=== PATIENT | male | born 1995 | race Two or more races ===

== ENCOUNTER 2020-01-24 15:18 | Inpatient (IN) | payer MEDICAID ==
[~2020-01-24] VITALS: Ht 182.9 cm; Wt 58.1 kg
[2020-01-24] VITALS (10 sets, daily range): BP systolic 105–140; BP diastolic 60–79; BMI 17.2
[2020-01-24 15:42] LABS: BASOPHILS 0.2 % (0-2); EOSINOPHILS 0.1 % (0-7); HEMATOCRIT 52.4 % (42.0-54.0); HEMOGLOBIN 17.5 g/dL (13.5-17.5); IMMATURE GRANULOCYTES 0.4 % (0-5); LYMPHOCYTES 5.9 % (15-50); MCH 34.1 pg (26.0-34.0); MCHC 33.4 g/dL (31.0-37.0); MCV 102.1 fL (80.0-100.0); MEAN PLATELET VOLUME 10.8 fL (7.4-10.4); MONOCYTES 3.2 % (2-11); NEUTROPHILS 90.2 % (40-80); PLATELET COUNT 304 10x3/uL (130-400); RBC 5.13 10x6/uL (4.20-6.10); RDW 12.9 % (11.5-14.5); WBC 18.1 10x3/uL (4.8-10.8)
[2020-01-24 16:01] LABS: ALBUMIN 4.9 g/dL (3.4-5.0); BILIRUBIN - TOTAL 0.59 mg/dL (0.2-1.3); C-REACTIVE PROTEIN 3.2 mg/dL (0.0-0.9); CALCIUM 9.5 mg/dL (8.5-10.1); CREATININE - SERUM 1.5 mg/dL (0.6-1.3); MAGNESIUM - SERUM 2.2 mg/dL (1.8-2.4); PROTEIN - SERUM 9.6 g/dL (6.4-8.2)
[2020-01-24 16:15] LABS: ANION GAP 36.5 mmol/L (8-16); POTASSIUM - SERUM 6.1 mmol/L (3.5-5.1)
[2020-01-24 16:16] LABS: CARBON DIOXIDE 7.6 mmol/L (21.0-32.0)
--- NOTE | 2020-01-24 17:00 | NUR ---
NS INFUSION COMPLETE @ 1700 ON 01/24/20
[2020-01-24 17:38] LABS: UDS - AMPHET NEGATIVE QUAL (NEGATIVE); UDS - BARB NEGATIVE QUAL (NEGATIVE); UDS - BENZO NEGATIVE QUAL (NEGATIVE); UDS - COCAINE NEGATIVE QUAL (NEGATIVE); UDS - OPIATE NEGATIVE QUAL (NEGATIVE); UDS - PCP NEGATIVE QUAL (NEGATIVE); UDS - THC NEGATIVE QUAL (NEGATIVE)
[2020-01-24 17:39] LABS: BILIRUBIN NEGATIVE (NEGATIVE); GLUCOSE 1000 mg/dL (NEGATIVE); KETONE LARGE mg/dL (NEGATIVE); NITRITE NEGATIVE (NEGATIVE); SPECIFIC GRAVITY 1.025 (1.005-1.020); UROBILINOGEN NORMAL (NORMAL)
--- NOTE | 2020-01-24 17:48 | NUR ---
RESTING IN BED WITH EYES CLOSED. AROUSES EASILY WHEN NAME CALLED. MOANS OUT IN PAIN WITH ANY INTERVENTION THEN RTNS TO REST IMMED
--- NOTE | 2020-01-24 18:10 | NUR ---
REPORT GIVEN TO JARED RODRIGUEZ BY JARED DOMÍNGUEZ
--- NOTE | 2020-01-24 18:20 | NUR ---
NS INFUSING @ 100 ML/HR, SODIUM BICARB GTT INFUSING @ 100 ML/HR AND INSULIN GTT INFUSING AT 11 UNITS/HR (11 ML/HR) UPON TRANSPORT TO ICU
--- NOTE | 2020-01-24 18:20 | NUR ---
TRANSPORTED TO ICU VIA [facility] CONDITION STABLE
--- NOTE | 2020-01-24 18:30 | NUR ---
PT ARRIVED FROM ER IN [facility] IN STABLE CONDITION. A&OX4 BUT SLEEPY AND WEAK. VSS. BS AT THIS TIME IS 286. INSULIN DRIP CHANGES TO 9 UNITS AT THIS TIME PER INSULIN FLOW PROTOCOL. WILL PERFOMR FULL ASSESSMENT AND HX AND DOCUMENT. BED IS LOW,SIDE RIASLX2,CALL LIGHT WITHIN REACH.
[2020-01-24 19:37] LABS: CALCIUM 8.5 mg/dL (8.5-10.1); CARBON DIOXIDE 10.5 mmol/L (21.0-32.0); CHLORIDE - SERUM 104 mmol/L (98-107); CREATININE - SERUM 1.2 mg/dL (0.6-1.3); SODIUM 140 mmol/L (136-145); UREA NITROGEN 18 mg/dL (7-18); eGFR NON AFRICAN AMERICAN 80 mL/min (90-120)
[2020-01-24 19:38] LABS: CALC OSMOLALITY 291 mosm/kg (275-300); GLUCOSE 293 mg/dL (74-106)
--- NOTE | 2020-01-24 20:30 | NUR ---
PT IS RESTING IN BED WITH EYES CLOSED. VSS. BS IS 258 AT THIS TIME. WHEN ASKED IF HE NEEDS ANYTHIGN OR IS HAVING ANY PAIN, HE VOICES "NO". BED IS LOW,SIDE RAILSX2,CALL LIGHT WITHIN REACH. WILL CONITNUE TO [facility]
--- NOTE | 2020-01-24 21:00 | NUR ---
ABDELRAHMAN ELLSWORTH CALLED AT THIS TIME. T.O TO START D5 1/2 NS AT 125ML/HR WHEN BS IS BELOW 200. T.O READ BACK CORRECT.
--- NOTE | 2020-01-24 21:30 | NUR ---
PT IS RESTING IN BED WITH EYES CLOSED. VSS. BS IS 211 AT THIS TIME. NO NEEDS OR COMPLAINTS VOICED. BED IS LOW,SIDE RAISLX2,CALL LIGHT WITHIN REACH. WILL CONITNUE TO MONITOR
--- NOTE | 2020-01-24 23:30 | NUR ---
PT IS RESTING IN BED WITH EYES CLOSED. VSS. BS IS 96. PT VOICES NO NEEDS OR CONCERNS. BED IS LOW,SIDE RIALSX2,CALL LIGHT WITHIN REACH. SENG GARCIA IS HERE AT THIS TIME. GAVE VERABL ORDER TO GET BMP STAT SO HE CAN ASSESS LAB LEVELS. STAND BY FOR CHANGE IN FLUID ORDER. WILL CONITNUE TO MONITOR
[2020-01-25] VITALS (24 sets, daily range): BP systolic 105–132; BP diastolic 7–93; BMI 17.1
[2020-01-25 00:10] LABS: CALC OSMOLALITY 280 mosm/kg (275-300); CALCIUM 7.9 mg/dL (8.5-10.1); CARBON DIOXIDE 19.5 mmol/L (21.0-32.0); CHLORIDE - SERUM 108 mmol/L (98-107); CREATININE - SERUM 1.1 mg/dL (0.6-1.3); GLUCOSE 113 mg/dL (74-106); POTASSIUM - SERUM 4.1 mmol/L (3.5-5.1); SODIUM 140 mmol/L (136-145); UREA NITROGEN 16 mg/dL (7-18); eGFR NON AFRICAN AMERICAN 88 mL/min (90-120)
--- NOTE | 2020-01-25 00:14 | NUR ---
TALKED WITH SOPHIA QUICK AND NO CHANGE IN FLUID ORDERS AT THIS TIME AND TO FOLLOW GLYCEMIC PROTOCOL
--- NOTE | 2020-01-25 01:30 | NUR ---
PT IS RESTING WITH EYES CLOSED. VSS. BS IS 99 AT THIS TIME. ADJUSTED INSULIN TO 1.9 UNITS PER PROTOCOL. PT VOICES NO NEED OR CONCERNS. BED IS LOW,SIDE RAILSX2,CALL LIGHT WITHIN REACH. WILL CONITNUE TO MONITOR
--- NOTE | 2020-01-25 02:35 | NUR ---
PT IS RESTING IN BED WITH EYES CLOSED. VSS. BS IS 148 AT THIS TIME. CHANGING INSULIN TO 4.4 UNITS PER PROTOCOL. PT VOICES NO NEEDS OR COMPLAINTS. BED IS LOW,SIDE RIALSX2,CALL LIGHT WIHTIN REACH. WILL CONITNUE TO MONITOR
--- NOTE | 2020-01-25 03:30 | NUR ---
pt is resting with eyes closed. vss. BS IS 96. INSULIN DRIP IS AT 1.4 UNITS AT THIS TIME PER PROTOCOL. FILL PERFORM RE-ASSESSMENT AT THIS TIME AND DOC IN FLOWSHEET. PT VOICES NO NEEDS OR CONCERNS. I DID PROVIDE HIM WITH ICE CHIPS SINCE HIS BS IS BELOW 200 AND HE IS NO LONGER NAUSEA. TOLERATING WELL. HE IS LAYING ON RIGHT SIDE AND CAN MOVE SELF. BED IS LOW,SIDE RIALSX2,CALL LIGHT WITHIN REACH. WILL CONITNUE TO MONITOR
--- NOTE | 2020-01-25 04:30 | NUR ---
PT IS RESTING IN BED WITH EYES CLOSED. VSS. BS IS 97. NO NEEDS OR CONCERNS VOICED. BED IS LOW,SIDE RAILSX2,CALL LIGHT WITHIN REACH.
[2020-01-25 05:00] LABS: BASOPHILS 0.3 % (0-2); EOSINOPHILS 0.4 % (0-7); HEMATOCRIT 44.7 % (42.0-54.0); HEMOGLOBIN 15.1 g/dL (13.5-17.5); IMMATURE GRANULOCYTES 0.3 % (0-5); LYMPHOCYTES 19.3 % (15-50); MCH 33.6 pg (26.0-34.0); MCHC 33.8 g/dL (31.0-37.0); MEAN PLATELET VOLUME 10.2 fL (7.4-10.4); MONOCYTES 9.1 % (2-11); NEUTROPHILS 70.6 % (40-80); PLATELET COUNT 284 10x3/uL (130-400); RDW 13.1 % (11.5-14.5); WBC 15.6 10x3/uL (4.8-10.8)
[2020-01-25 05:03] LABS: MCV 99.3 fL (80.0-100.0)
--- NOTE | 2020-01-25 05:30 | NUR ---
PT IS RESTING WITH EYES CLOSED. VSS. BS IS 84 AT THIS TIME. PT VOICES NO NEEDS OR C/O PAIN. WHEN ASKED IF HE WOULD LIKE TO HAVE A BATH HE VOICED"NO NOT RIGHT NOW, MAYBE LATER, I JUST WANT TO SLEEP". CALL [facility]IO. WILL CONTINUE TO MONITOR
[2020-01-25 05:36] LABS: ALBUMIN 3.4 g/dL (3.4-5.0); ALKALINE PHOSPHATASE 108 U/L (30-120); ALT (SGPT) 24 U/L (10-68); BILIRUBIN - TOTAL 0.28 mg/dL (0.2-1.3); CALC OSMOLALITY 275 mosm/kg (275-300); CALCIUM 7.9 mg/dL (8.5-10.1); CARBON DIOXIDE 19.7 mmol/L (21.0-32.0); CHLORIDE - SERUM 108 mmol/L (98-107); CREATININE - SERUM 1.1 mg/dL (0.6-1.3); GLUCOSE 78 mg/dL (74-106); PHOSPHOROUS 3.7 mg/dL (2.5-4.9); POTASSIUM - SERUM 4.1 mmol/L (3.5-5.1); PROTEIN - SERUM 7.1 g/dL (6.4-8.2); SODIUM 138 mmol/L (136-145); THYROID STIMULATING HORMONE 1.49 uIU/mL (0.36-3.74); UREA NITROGEN 16 mg/dL (7-18); eGFR NON AFRICAN AMERICAN 88 mL/min (90-120)
--- NOTE | 2020-01-25 06:40 | NUR ---
PT IS RESTING IN BED WITH EYES CLOSED. VSS. BED IS LOW,SIDE RAILSX2,CALL LIGHT WITHIN REACH. WILL CONINTUE TO MONITOR
--- NOTE | 2020-01-25 07:00 | NUR ---
BEDSIDE REPORT RECEIVED. SHIFT ASSESSMENT COMPLETED PER FLOWSHEET, SEE FLOWSHEET FOR INFORMATION. PT APPEARS TO BE LETHARGIC BUT A&OX4, EASILY AROUSED. CHECKED FSBS, TITRATED INSULIN DRIP PER ORDERS. VSS. PT DENIES ANY ACUTE NEEDS OR DISTRESS NOTED AT THIS TIME. WILL CONT TO MONITOR.
[2020-01-25 07:11] LABS: CALC OSMOLALITY 273 mosm/kg (275-300); CALCIUM 7.9 mg/dL (8.5-10.1); CHLORIDE - SERUM 106 mmol/L (98-107); CREATININE - SERUM 0.9 mg/dL (0.6-1.3); GLUCOSE 81 mg/dL (74-106); POTASSIUM - SERUM 4.2 mmol/L (3.5-5.1); SODIUM 137 mmol/L (136-145); UREA NITROGEN 14 mg/dL (7-18); eGFR NON AFRICAN AMERICAN > 90 mL/min (90-120)
--- NOTE | 2020-01-25 09:00 | NUR ---
PT RESTING IN BED WITH EYES CLOSED. NO ACUTE NEEDS OR DISTRESS NOTED AT THIS TIME. VSS. WILL CONT TO MONITOR.
--- NOTE | 2020-01-25 11:00 | NUR ---
REASSESSMENT COMPLETED PER FLOWSHEET, SEE FLOWSHEET FOR INFORMATION. VSS. ASSISSTED PT TO BSC. NO ACUTE NEEDS OR DISTRESS NOTED AT THIS TIME. WILL CONT TO MONITOR.
--- NOTE | 2020-01-25 13:00 | NUR ---
PT STATING "I THOUGHT YOU WERE SUPPOSED TO BE GETTING ME A FOOD TRAY?" INFORMED PT THAT WE HAVE TO WAIT FOR FSBS READING TO SEE IF INSULIN IS WORKING. WILL CONT TO MONITOR.
[2020-01-25 14:19] LABS: CALC OSMOLALITY 273 mosm/kg (275-300); CARBON DIOXIDE 16.2 mmol/L (21.0-32.0); CHLORIDE - SERUM 101 mmol/L (98-107); CREATININE - SERUM 1.1 mg/dL (0.6-1.3); GLUCOSE 217 mg/dL (74-106); POTASSIUM - SERUM 5.5 mmol/L (3.5-5.1); SODIUM 133 mmol/L (136-145); UREA NITROGEN 15 mg/dL (7-18); eGFR NON AFRICAN AMERICAN 88 mL/min (90-120)
--- NOTE | 2020-01-25 14:32 | NUR ---
UPDATE GIVEN, NO NEW ORDERS RECEIVED. WILL CONT TO MONITOR.
--- NOTE | 2020-01-25 15:00 | NUR ---
REASSESSMENT COMPLETE PER FLOWSHEET, SEE FLOWSHEET FOR INFORMATION. TRAY GIVEN. WILL CONT TO MONITOR. NO ACUTE NEEDS OR DISTRESS NOTED.
--- NOTE | 2020-01-25 17:00 | NUR ---
NOTED A 9MM BY 4MM INFLAMMED HARDENED BUMP ON PT L SHOULDER. NOTIFIED , NO NEW ORDERS. WAITING FOR RESPONSE. WILL CONT TO MONITOR.
[2020-01-25 18:27] LABS: UDS - AMPHET NEGATIVE QUAL (NEGATIVE); UDS - BARB NEGATIVE QUAL (NEGATIVE); UDS - BENZO NEGATIVE QUAL (NEGATIVE); UDS - COCAINE NEGATIVE QUAL (NEGATIVE); UDS - OPIATE NEGATIVE QUAL (NEGATIVE); UDS - PCP NEGATIVE QUAL (NEGATIVE); UDS - THC NEGATIVE QUAL (NEGATIVE)
--- NOTE | 2020-01-25 18:50 | NUR ---
NEW ORDERS RECEIVED PER . WILL CONT TO MONITOR.
--- NOTE | 2020-01-25 19:10 | NUR ---
RECIVED REPORT AT BEDSIDE. PT IS SITTING UP WATCHING TV A&OX4. VOICES NO PAIN AT THIS TIME WHEN ASKED. NO NEEDS VOICED. VSS. RECIVED IN REPORT THAT PT HAS A NEW LESION/BUMP ON THE BACK OF HIS LEFT UPPER ARM. IT IS HARD, WARM, AND READ. ULTRASOUND IS ORDERED AND VANCOMYCIN WAS ADDED TO ORDERS. LAB IS HERE AT THIS TIME CHECKING BS DUE TO OUR BLOOD GLUCOSE MACHINE NOT WORKING AT THIS TIME. WILL FOLLOW UP WITH THAT ONCE POSTED. WILL PERFOMR FULL ASSESSMNETN AND DOCUMENT IN FLOW SHEET. BED IS LOW,SIDE RAILSX2,CALL LIGHT WITHIN REACH. WILL CONTINUE TO MONITOR
[2020-01-25 19:23] LABS: CALCIUM 7.7 mg/dL (8.5-10.1); CHLORIDE - SERUM 100 mmol/L (98-107); CREATININE - SERUM 1.1 mg/dL (0.6-1.3); SODIUM 130 mmol/L (136-145); eGFR NON AFRICAN AMERICAN 88 mL/min (90-120)
[2020-01-25 19:24] LABS: CALC OSMOLALITY 275 mosm/kg (275-300); GLUCOSE 324 mg/dL (74-106); UREA NITROGEN 19 mg/dL (7-18)
--- NOTE | 2020-01-25 21:12 | NUR ---
PT USED CALL LIGHT AND ASKED "CAN I HAVE A SNACK?". I PROVIDED HIM WITH SUGAR FREE JELLO AND A DIET TONNY MIST. PT VOICED "THANK YOU". VSS. BED IS LOW,SIDE RAISLX2,CALL LIGHT OSMARIN REACH. WILL CONTINUE TO MONITOR
--- NOTE | 2020-01-25 21:46 | NUR ---
JUST CALLED TAXI DANCER FOR THE SECOND TIME TO COME OVERRIDE VANCOMYCIN THAT IS NEW ORDER. SHE VOICED"ILL BE THERE SHORTLY".
--- NOTE | 2020-01-25 23:26 | NUR ---
PT IS RESTING IN BED WITH EYES CLOSED. VSS. BED IS LOW,SIDE RAISLX2,CALL LIGHT WITHIN REACH. WILL CONTINUE TO MONITOR
[2020-01-26] VITALS (16 sets, daily range): BP systolic 103–124; BP diastolic 56–85
--- NOTE | 2020-01-26 00:44 | NUR ---
PT IS RESTING IN BED WITH EYES CLSOED. VSS. BED IS LOW,SIDE RAILSX2,CALL LIGHT WITHIN REACH. WILL CONTINUE TO MONITOR
--- NOTE | 2020-01-26 02:42 | NUR ---
PT IS RESTING IN BED WITH EYES CLOSED. VSS. WILL PERFORM RE-ASSESSMENT AND DOCUMENT IN FLOWSHEET. PT VOICED NO NEEDS OR C/O OF PAIN. BED IS LOW,SIDE RIALSX2,CALL LIGHT WITHIN REACH. WILL CONINTUE TO MONITOR
[2020-01-26 03:52] LABS: BASOPHILS 0.3 % (0-2); EOSINOPHILS 1.2 % (0-7); HEMATOCRIT 39.6 % (42.0-54.0); HEMOGLOBIN 13.2 g/dL (13.5-17.5); IMMATURE GRANULOCYTES 0.3 % (0-5); LYMPHOCYTES 17.8 % (15-50); MCH 32.9 pg (26.0-34.0); MCHC 33.3 g/dL (31.0-37.0); MCV 98.8 fL (80.0-100.0); MEAN PLATELET VOLUME 10.3 fL (7.4-10.4); MONOCYTES 8.5 % (2-11); NEUTROPHILS 71.9 % (40-80); PLATELET COUNT 234 10x3/uL (130-400); RBC 4.01 10x6/uL (4.20-6.10); RDW 12.9 % (11.5-14.5)
[2020-01-26 03:56] LABS: WBC 11.5 10x3/uL (4.8-10.8)
[2020-01-26 04:01] LABS: ALBUMIN 2.9 g/dL (3.4-5.0); ALKALINE PHOSPHATASE 99 U/L (30-120); ALT (SGPT) 23 U/L (10-68); BILIRUBIN - TOTAL 0.36 mg/dL (0.2-1.3); CALC OSMOLALITY 275 mosm/kg (275-300); CARBON DIOXIDE 23.6 mmol/L (21.0-32.0); CHLORIDE - SERUM 102 mmol/L (98-107); GLUCOSE 281 mg/dL (74-106); MAGNESIUM - SERUM 1.6 mg/dL (1.8-2.4); PHOSPHOROUS 2.9 mg/dL (2.5-4.9); POTASSIUM - SERUM 3.7 mmol/L (3.5-5.1); PROTEIN - SERUM 6.2 g/dL (6.4-8.2); SODIUM 133 mmol/L (136-145); eGFR NON AFRICAN AMERICAN > 90 mL/min (90-120)
[2020-01-26 04:03] LABS: UREA NITROGEN 13 mg/dL (7-18)
--- NOTE | 2020-01-26 04:30 | NUR ---
PT IS RESTING IN BED ON RIGHT SIDE C EYES CLOSED. VSS. BED IS LOW, SIDE RAILSX2,CALL LIGHT WITHIN REACH. WILLC ONITNUE TO MONITOR
--- NOTE | 2020-01-26 06:31 | NUR ---
PT IS RESTING IN BED WATCHING TV. VOICES NO NEEDS OR C/O OF PAIN. VSS. BED IS LOW,SIDE RIALSX2,CALL LIGHT WTIHIN REACH. WILLC ONITNUE TO MONITOR
--- NOTE | 2020-01-26 07:00 | NUR ---
BEDSIDE REPORT RECEIVED. SHIFT ASSESSMENT COMPLETE PER FLOWSHEET, SEE FLOWSHEET FOR INFORMATION. PT REQUESTED "MORE SNACKS", INFORMED PT THAT WE NEED TO CUT BACK ON HIS "SNACKS" TO HELP DECREASE HIS BS. NO ACUTE NEEDS OR DISTRESS NOTED AT THIS TIME. VSS. WILL CONT TO MONITOR.
--- NOTE | 2020-01-26 09:00 | NUR ---
PT REQUESTED TO HAVE PEANUT BUTTER, CESAR CRACKERS AND MILK FOR HIS PROTEIN. INFORMED PT THAT ALL OF THOSE ARE VERY HIGH IN SUGAR AND I WOULD GLADLY CALL DIETARY TO MAKE A MORE DIABETIC FRIEDNLY DECISION. PT DENIES AND SAYS HE DOESN'T NEED IT. NO ACUTE NEEDS OR DISTRESS NOTED AT THIS TIME. VSS. WILL CONT TO MONITOR.
--- NOTE | 2020-01-26 11:00 | NUR ---
REASSESSMENT COMPLETED PER FLOWSHEET, SEE FLOWSHEET FOR INFORMATION. NO ACUTE NEEDS OR DISTRESS NOTED AT THIS TIME. DIATERY CONSULT AT BEDSIDE. WILL CONT TO MONITOR.
--- NOTE | 2020-01-26 12:33 | NUR ---
Nutrition consult for DMT1: Instructed pt on diabetic diet. Pt reports he usually keeps glucose under better control; however, pt reports being under a lot of stress recently and he is not sure what happened. Pt states he has had nutrition education before and tries to watch what he eats. RDN reviewed CHO containing foods and the affect CHO have on glucose. Stressed the importance of eating meals at consistent CHO every day. Discussed CHO foods pt should eliminate ie: regular soda, juice, all sugary foods. Will continue to educate pt while he is in the hospital. Provided pt with printed diet information and RDN name and phone number. RDN following.
--- NOTE | 2020-01-26 13:00 | NUR ---
PT RESTING IN BED WITH EYES CLOSED. WILL CONT TO MONITOR.
--- NOTE | 2020-01-26 13:51 | NUR ---
PAGED FOR CONSULT. WILL CONT TO MONITOR.
--- NOTE | 2020-01-26 14:30 | NUR ---
REPORT CALLED TO MED 2. TRANSFER PT TO ROOM [id number]. NO ACUTE NEEDS OR DISTRESS NOTED. WILL CONT TO MONITOR.
--- NOTE | 2020-01-26 15:20 | NUR ---
PT RECIEVED FROM ICU VIA WHEELCHAIR. IV NOTED TO L AND R AC, BOTH SL. CURRENTLY IN SHOWER PER REQUEST. DENIES FURTHER NEEDS OR PAIN AT THIS TIME. CALL LIGHT WITHIN REACH. ORIENTED TO ROOM. BED IN LOWEST POSITION. WILL CONTINUE TO MONITOR.
--- NOTE | 2020-01-26 19:30 | NUR ---
RECEIVED REPORT, WILL ASSUME CARE OF PT, WATCHING TV AND DRINKING COFFEE, DENIES ANY OTHER NEEDS AT THIS TIME, BED IS LOW, SRX2, CALL LIGHT IN REACH, WILL CONTINUE PLAN OF CARE
[2020-01-27] VITALS: BP 117/75
[2020-01-27 04:00] VITALS: BP 114/70
--- NOTE | 2020-01-27 05:54 | NUR ---
I have reviewed this patient and I concur with the Shift Assessment completed by the Licensed Practical Nurse today this shift.\
[2020-01-27 05:57] LABS: BASOPHILS 0.7 % (0-2); EOSINOPHILS 1.6 % (0-7); HEMATOCRIT 38.9 % (42.0-54.0); IMMATURE GRANULOCYTES 0.3 % (0-5); LYMPHOCYTES 25.1 % (15-50); MCH 32.9 pg (26.0-34.0); MCHC 33.4 g/dL (31.0-37.0); MCV 98.5 fL (80.0-100.0); MEAN PLATELET VOLUME 10.3 fL (7.4-10.4); MONOCYTES 12.2 % (2-11); NEUTROPHILS 60.1 % (40-80); PLATELET COUNT 193 10x3/uL (130-400); RBC 3.95 10x6/uL (4.20-6.10); RDW 12.7 % (11.5-14.5)
--- NOTE | 2020-01-27 06:02 | NUR ---
[id number] ORANGE JUICE AND GRAMCRACKERS
[2020-01-27 06:03] LABS: WBC 7.7 10x3/uL (4.8-10.8)
[2020-01-27 06:17] LABS: ALBUMIN 2.8 g/dL (3.4-5.0); ALKALINE PHOSPHATASE 88 U/L (30-120); ALT (SGPT) 21 U/L (10-68); BILIRUBIN - TOTAL 0.38 mg/dL (0.2-1.3); CALCIUM 8.4 mg/dL (8.5-10.1); CARBON DIOXIDE 28.2 mmol/L (21.0-32.0); CHLORIDE - SERUM 105 mmol/L (98-107); MAGNESIUM - SERUM 1.7 mg/dL (1.8-2.4); SODIUM 143 mmol/L (136-145); UREA NITROGEN 10 mg/dL (7-18)
[2020-01-27 06:20] LABS: PHOSPHOROUS 3.8 mg/dL (2.5-4.9)
[2020-01-27 06:21] LABS: CALC OSMOLALITY 281 mosm/kg (275-300); CREATININE - SERUM 0.6 mg/dL (0.6-1.3); GLUCOSE 54 mg/dL (74-106); eGFR NON AFRICAN AMERICAN > 90 mL/min (90-120)
[2020-01-27 06:22] LABS: POTASSIUM - SERUM 2.8 mmol/L (3.5-5.1)
--- NOTE | 2020-01-27 07:20 | NUR ---
RECIEVE REPORT. RESTING IN BED WITH EYES CLOSED. NO SIGNS OF DISTRESS. CONTINUE PLAN OF CARE AND SAFETY PRECAUTIONS.
[2020-01-27 10:14] VITALS: BP 119/79
--- NOTE | 2020-01-27 11:07 | NUR ---
ALERT AND ORIENTED X4. SITTING UP IN BED. CONSENTS SIGNED ON CHART FOR PROCEDURE. DENIES ANY NEEDS. CONTINUE PLAN OF CARE AND SAFETY PRECAUTIONS.
[2020-01-27 13:08] VITALS: Ht 182.9 cm; Wt 58.1 kg
--- NOTE | 2020-01-27 13:59 | NUR ---
RETURN TO ROOM VIA BED FROM PROCEDURE. BP-143/89, HR-75, R-16, O2-99% RA. LT ARM IN SLING. DRESSING CLEAN DRY INTACT. FREE FROM BLEEDING. DENIES ANY NEEDS AT THIS TIME. CONTINUE PLAN OF CARE AND SAFETY PECAUTIONS.
[2020-01-27 14:33] LABS: MAGNESIUM - SERUM 1.7 mg/dL (1.8-2.4)
[2020-01-27 14:44] LABS: POTASSIUM - SERUM 3.3 mmol/L (3.5-5.1)
[2020-01-27 17:19] VITALS: BP 117/72
--- NOTE | 2020-01-27 19:25 | NUR ---
RECEIVED REPORT, WILL ASSUME CARE OF PT, COMPLAINS OF ARM PAIN, WILL PROVIDE NORCO ORDER, BED IS LOW, SRX2, CALL LIGHT IN REACH, WILL CONTINUE PLAN OF CARE
[2020-01-27 20:00] VITALS: BP 123/84
[2020-01-28 01:12] VITALS: BP 106/79
--- NOTE | 2020-01-28 04:00 | NUR ---
I have reviewed this patient and I concur with the Shift Assessment completed by the Licensed Practical Nurse today this shift.
[2020-01-28 04:05] VITALS: BP 121/79
[2020-01-28 05:48] LABS: BASOPHILS 0.7 % (0-2); EOSINOPHILS 4.7 % (0-7); HEMATOCRIT 40.7 % (42.0-54.0); HEMOGLOBIN 13.4 g/dL (13.5-17.5); IMMATURE GRANULOCYTES 0.3 % (0-5); LYMPHOCYTES 36.8 % (15-50); MCH 32.8 pg (26.0-34.0); MCHC 32.9 g/dL (31.0-37.0); MCV 99.8 fL (80.0-100.0); MEAN PLATELET VOLUME 10.5 fL (7.4-10.4); MONOCYTES 9.3 % (2-11); NEUTROPHILS 48.2 % (40-80); PLATELET COUNT 188 10x3/uL (130-400); RBC 4.08 10x6/uL (4.20-6.10); RDW 12.9 % (11.5-14.5); WBC 5.9 10x3/uL (4.8-10.8)
[2020-01-28 06:29] LABS: ALBUMIN 2.9 g/dL (3.4-5.0); ALKALINE PHOSPHATASE 126 U/L (30-120); BILIRUBIN - TOTAL 0.16 mg/dL (0.2-1.3); CALCIUM 8.2 mg/dL (8.5-10.1); CARBON DIOXIDE 28.8 mmol/L (21.0-32.0); CHLORIDE - SERUM 99 mmol/L (98-107); CREATININE - SERUM 0.6 mg/dL (0.6-1.3); MAGNESIUM - SERUM 1.9 mg/dL (1.8-2.4); PHOSPHOROUS 3.8 mg/dL (2.5-4.9); PROTEIN - SERUM 6.2 g/dL (6.4-8.2); SODIUM 134 mmol/L (136-145); UREA NITROGEN 12 mg/dL (7-18); eGFR NON AFRICAN AMERICAN > 90 mL/min (90-120)
[2020-01-28 06:35] LABS: ALT (SGPT) 27 U/L (10-68); CALC OSMOLALITY 278 mosm/kg (275-300); GLUCOSE 302 mg/dL (74-106); POTASSIUM - SERUM 4.3 mmol/L (3.5-5.1)
--- NOTE | 2020-01-28 07:20 | NUR ---
RECIEVE REPORT. RESTING IN BED. ALERT AND ORIENTED X4. LT ARM IN SLING. DENIES ANY NEEDS. CONTINUE PLAN OF CARE AND SAFETY PRECAUTIONS.
[2020-01-28 07:53] VITALS: BP 112/67
[2020-01-28 11:28] VITALS: BP 118/77
--- NOTE | 2020-01-28 14:13 | NUR ---
ALERT AND ORIENTED X4. SHOWER AND LINEN CHANGE COMPLETE. RT AND LT AC IV INFILTRATED. DC RT AND LT IV TIP INTACT. RESITE IV TO LT FA 20G SUCCESSFUL X1 ATTEMPT. LT UPPER EXTREMITY DRESSING CHANCGE ORDERED. CONTINUE PLAN OF CARE AND SAFETY PRECAUTIONS.
[2020-01-28 16:10] VITALS: BP 129/60
--- NOTE | 2020-01-28 17:04 | MORECARE ---
CASE MANAGEMENT DISCHARGE SUMMARY PATIENT: GIANNA CRUZ UNIT: [id number] ADM DATE: 01/24/20 AGE: 24 : 89 SEX: M ROOM/BED: D.2127 AUTHOR: EVELINA BARRAZA PHYSICIAN: REFERRING PHYSICIAN: HALLE DIGGS MD DATE OF SERVICE: 01/28/20 Discharge Plan Patient Name: GIANNA CRUZ [facility] [facility] 1995 Planned Disposition: Home Anticipated Discharge Date: Discharge Date: Expected LOS: Initial Reviewer: [email or web address] Initial Review Date: 01/28/2020 Generated: 01/28/20 6:03 pm DCPIA - Discharge Planning Initial Assessment Updated by [email or web address]: Eva Mane on 01/28/20 5:01 pm * Is the patient Alert and Oriented? Yes * How many steps to enter\exit or inside your home? * PCP None * Pharmacy [facility] * Preadmission Environment Homeless * ADLs Independent * Equipment None * Verbal permission to speak to the caregivers and representatives has been obtained from the patient. N/A * Community resources currently utilized None * Additional services required to return to the preadmission environment? No * Can the patient safely return to the preadmission environment? Yes * Has this patient been hospitalized within the prior 30 days at any hospital? No Patient Name: GIANNA CRUZ Page [phone] at 1704 All edits/amendments must be made on the electronic document DICTATION DATE: 01/28/201702 MANAGER CASINO: DOROTEO 01/28/201702 RPT#: [id number] DC DATE: STATUS: ADM IN [facility] [address] [place] [address] END OF REPORT
--- NOTE | 2020-01-28 17:11 | MORECARE ---
CASE MANAGEMENT DISCHARGE SUMMARY PATIENT: GIANNA CRUZ UNIT: [id number] ADM DATE: 01/24/20 AGE: 24 : 96 SEX: M ROOM/BED: D.2953 AUTHOR: MADI,DOC PHYSICIAN: REFERRING PHYSICIAN: HALLE DIGGS MD DATE OF SERVICE: 01/28/20 Discharge Plan Patient Name: GIANNA CRUZ Facility: [facility]:[place] : 1995 Planned Disposition: Home Anticipated Discharge Date: Discharge Date: Expected LOS: Initial Reviewer: [email or web address] Initial Review Date: 01/28/2020 Generated: 01/28/20 6:10 pm Comments DCP- Discharge Planning Updated by [email or web address]: Eva Mane on 01/28/20 4:[address] Patient Name: GIANNA CRUZ Admission Status: ER Accout number: [id number] Admission Date: 01-24-2020 : 1995 Admission Diagnosis:NAUSEA WITH VOMITING, UNSPECIFIED Attending: HALLE DIGGS Current LOS: 4 Anticipated DC Date: Planned Disposition: Home Primary Insurance: MEDICAID [place] Discharge Planning Comments: CM met with patient about discharge planning / needs. Patient states he is homeless. 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 and when he has some money he will stay in a hotel. When he doesn't have money he sleeps on the streets. States he had a glucometer, insulin and syringes but his stuff keeps getting stolen. States he will need a glucometer, strips, lancets and insulin upon hospital DC. States his Medicaid pays for most of the insulin but he can't afford the copay right now because he doesn't have any money. States he feels safe. When CM asked for an emergency contact patient states he doesn't have anyone. CM will continue to follow and assist as needed with discharge planning / needs. Wort Extractor: Eva Mane DCPIA - Discharge Planning Initial Assessment Updated by [email or web address]: Eva Mane on 01/28/20 5:01 pm * Is the patient Alert and Oriented? Yes * How many steps to enter\exit or inside your home? * PCP None * Pharmacy [facility] at [facility] * Preadmission Environment Homeless * ADLs Independent * Equipment None * Verbal permission to speak to the caregivers and representatives has been obtained from the patient. N/A * Community resources currently utilized None * Additional services required to return to the preadmission environment? No * Can the patient safely return to the preadmission environment? Yes * Has this patient been hospitalized within the prior 30 days at any hospital? No Last DP export: 01/28/20 4:04 p Patient Name: GIANNA CRUZ Page [phone] at 1711 All edits/amendments must be made on the electronic document DICTATION DATE: 01/28/201709 IOS DEVELOPER: DOROTEO 01/28/201709 RPT#: [id number] DC DATE: STATUS: ADM IN [facility] [address] [place] [address] END OF REPORT
--- NOTE | 2020-01-28 21:04 | NUR ---
HS MEDS GIVEN, BS COVERED PER S/S. HS SNACK PROVIDED. IV TO LEFT FOREARM SWELLING WHEN FLUSHING, IV CATH REMOVED, TIP INTACT. IV RESITED TO RIGHT FOREARM, 20 GUAGE, FIRST ATTEMPT, PT TOLERATED WELL.
[2020-01-28 22:16] VITALS: BP 113/68
[2020-01-29 00:40] VITALS: BP 114/62
--- NOTE | 2020-01-29 01:50 | NUR ---
I have reviewed this patient and I concur with the Shift Assessment completed by the Licensed Practical Nurse today this shift.
[2020-01-29 05:29] VITALS: BP 100/52
[2020-01-29 05:52] LABS: BASOPHILS 1.4 % (0-2); EOSINOPHILS 6.6 % (0-7); HEMATOCRIT 40.9 % (42.0-54.0); HEMOGLOBIN 13.4 g/dL (13.5-17.5); IMMATURE GRANULOCYTES 0.9 % (0-5); LYMPHOCYTES 39.7 % (15-50); MCH 32.9 pg (26.0-34.0); MCHC 32.8 g/dL (31.0-37.0); MCV 100.5 fL (80.0-100.0); MEAN PLATELET VOLUME 10.8 fL (7.4-10.4); MONOCYTES 9.8 % (2-11); NEUTROPHILS 41.6 % (40-80); PLATELET COUNT 210 10x3/uL (130-400); RBC 4.07 10x6/uL (4.20-6.10); RDW 12.8 % (11.5-14.5); WBC 5.8 10x3/uL (4.8-10.8)
[2020-01-29 06:22] LABS: ALBUMIN 2.8 g/dL (3.4-5.0); ALKALINE PHOSPHATASE 131 U/L (30-120); ALT (SGPT) 25 U/L (10-68); BILIRUBIN - TOTAL 0.26 mg/dL (0.2-1.3); CALCIUM 8.4 mg/dL (8.5-10.1); CARBON DIOXIDE 28.8 mmol/L (21.0-32.0); CHLORIDE - SERUM 98 mmol/L (98-107); MAGNESIUM - SERUM 1.9 mg/dL (1.8-2.4); PHOSPHOROUS 4.5 mg/dL (2.5-4.9); POTASSIUM - SERUM 4.8 mmol/L (3.5-5.1); PROTEIN - SERUM 6.4 g/dL (6.4-8.2); SODIUM 134 mmol/L (136-145)
[2020-01-29 06:31] LABS: CALC OSMOLALITY 289 mosm/kg (275-300); CREATININE - SERUM 0.8 mg/dL (0.6-1.3); GLUCOSE 436 mg/dL (74-106); UREA NITROGEN 20 mg/dL (7-18); eGFR NON AFRICAN AMERICAN > 90 mL/min (90-120)
--- NOTE | 2020-01-29 07:36 | NUR ---
ASSESSMENT DONE. DENIES NEEDS
[2020-01-29 08:40] VITALS: BP 114/72
[2020-01-29] MEDS ORDERED: NOVOLOG MIX SC ×4 (09:54→10:37)
[2020-01-29] MEDS ORDERED: HUMULIN R100 UNIT/1 SC ×2 (09:54→10:37)
[2020-01-29] MEDS ORDERED: FLORANEX / LACT1 TAB PO ×2 (09:54→10:37)
[2020-01-29] MEDS ORDERED: CLINDAMYCIN HC300 MG PO ×2 (09:54→10:37)
--- NOTE | 2020-01-29 12:39 | MORECARE ---
CASE MANAGEMENT DISCHARGE SUMMARY PATIENT: GIANNA CRUZ UNIT: [id number] ADM DATE: 01/24/20 AGE: 24 : 89 SEX: M ROOM/BED: D.0027 AUTHOR: MADI,DOC PHYSICIAN: REFERRING PHYSICIAN: HALLE DIGGS MD DATE OF SERVICE: 01/29/20 Discharge Plan Patient Name: GIANNA CRUZ Facility[facility]:[place] : 1995 Planned Disposition: Home Anticipated Discharge Date: Discharge Date: Expected LOS: Initial Reviewer: [email or web address] Initial Review Date: 01/28/2020 Generated: 01/29/20 1:38 pm Comments DCP- Discharge Planning Updated by [email or web address]: Odalys Prado on 01/29/20 11:[address] Received discharge orders. I met with the patient and informed him that we would get his insulin for him at [facility] and pay for the copay. He refuses for me to get his insulin. He states he can get his own insulin and pay for the copay. I informed him that we could set up his dressing changes at the hospital in out patient's and he states he can do his own dressing change daily. He states "the only thing I asked for was a glucometer." I called and priced the glucometer with strips and lancets. Glucometer and strips are 32. 83 for an Easy Touch and the lancets are 9.99. I called Kayla and she will go to the pharmacy and pick it up and bring it to me. I called in RX to [facility] [address] per patient request. He states he would like a bus ticket to get to the pharmacy which I provided to him. Home today after he receives his glucometer. DCP- Discharge Planning Updated by [email or web address]: Eva Mane on 01/28/20 4:[address] Patient Name: GIANNA CRUZ Admission Status: ER Accout number: [id number] Admission Date: 01-24-2020 : 1995 Admission Diagnosis:NAUSEA WITH VOMITING, UNSPECIFIED Attending: HALLE DIGGS Current LOS: 4 Anticipated DC Date: Planned Disposition: Home Primary Insurance: [place]ICAID [place] Discharge Planning Comments: CM met with patient about discharge planning / needs. Patient states he is homeless. 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 and when he has some money he will stay in a hotel. When he doesn't have money he sleeps on the streets. States he had a glucometer, insulin and syringes but his stuff keeps getting stolen. States he will need a glucometer, strips, lancets and insulin upon hospital DC. States his Medicaid pays for most of the insulin but he can't afford the copay right now because he doesn't have any money. States he feels safe. When CM asked for an emergency contact patient states he doesn't have anyone. CM will continue to follow and assist as needed with discharge planning / needs. Shank Scourer: Eva Mane DCPIA - Discharge Planning Initial Assessment Updated by [email or web address]: Eva Mane on 01/28/20 5:01 pm * Is the patient Alert and Oriented? Yes * How many steps to enter\\exit or inside your home? * PCP None * Pharmacy [facility] * Preadmission Environment Homeless * ADLs Independent * Equipment None * Verbal permission to speak to the caregivers and representatives has been obtained from the patient. N/A * Community resources currently utilized None * Additional services required to return to the preadmission environment? No * Can the patient safely return to the preadmission environment? Yes * Has this patient been hospitalized within the prior 30 days at any hospital? No Last DP export: 01/28/20 4:11 p Patient Name: GIANNA CRUZ Page [id number] at 1239 All edits/amendments must be made on the electronic document DICTATION DATE: 01/29/20 1238 DIVISIONAL MERCHANDISING MANAGER: DOROTEO 01/29/20 1238 RPT#: [id number] DC DATE: STATUS: ADM IN [facility] [address] [place] [address] END OF REPORT
--- NOTE | 2020-01-29 12:48 | NUR ---
I have reviewed this patient and I concur with the Shift Assessment completed by the Licensed Practical Nurse today this shift.
--- NOTE | 2020-01-29 13:23 | MORECARE ---
CASE MANAGEMENT DISCHARGE SUMMARY PATIENT: GIANNA CRUZ UNIT: [id number] ADM DATE: 01/24/20 AGE: 24 : 89 SEX: M ROOM/BED: D.8870 AUTHOR: MADI,DOC PHYSICIAN: REFERRING PHYSICIAN: HALLE DIGGS MD DATE OF SERVICE: 01/29/20 Discharge Plan Patient Name: GIANNA CRUZ Facility: [facility]:[place] : 1995 Planned Disposition: Home Anticipated Discharge Date: Discharge Date: Expected LOS: Initial Reviewer: [email or web address] Initial Review Date: 01/28/2020 Generated: 01/29/20 2:23 pm Comments DCP- Discharge Planning Updated by [email or web address]: Odalys Eve on 01/29/20 12:[address] Glucometer, strips and lancets given to the patient for home use. He declines other needs. Home today, he again states he will purchase his own medication copays. DCP- Discharge Planning Updated by [email or web address]: Odalys Eve on 01/29/20 11:[address] Received discharge orders. I met with the patient and informed him that we would get his insulin for him at [facility] and pay for the copay. He refuses for me to get his insulin. He states he can get his own insulin and pay for the copay. I informed him that we could set up his dressing changes at the hospital in out patient's and he states he can do his own dressing change daily. He states "the only thing I asked for was a glucometer." I called and priced the glucometer with strips and lancets. Glucometer and strips are 32. 83 for an Easy Touch and the lancets are 9.99. I called Kayla and she will go to the pharmacy and pick it up and bring it to me. I called in RX to [facility] [address] per patient request. He states he would like a bus ticket to get to the pharmacy which I provided to him. Home today after he receives his glucometer. DCP- Discharge Planning Updated by [email or web address]: Eva Mane on 01/28/20 4:[address] Patient Name: GIANNA CRUZ Admission Status: ER Accout number: [id number] Admission Date: 01-24-2020 : 1995 Admission Diagnosis:NAUSEA WITH VOMITING, UNSPECIFIED Attending: HALLE DIGGS Current LOS: 4 Anticipated DC Date: Planned Disposition: Home Primary Insurance: MEDICAID [place] Discharge Planning Comments: CM met with patient about discharge planning / needs. Patient states he is homeless. 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 and when he has some money he will stay in a hotel. When he doesn't have money he sleeps on the streets. States he had a glucometer, insulin and syringes but his stuff keeps getting stolen. States he will need a glucometer, strips, lancets and insulin upon hospital DC. States his Medicaid pays for most of the insulin but he can't afford the copay right now because he doesn't have any money. States he feels safe. When CM asked for an emergency contact patient states he doesn't have anyone. CM will continue to follow and assist as needed with discharge planning / needs. Top Precipitator Operator Helper: Eva Mane DCA - Discharge Planning Initial Assessment Updated by [id number]: Eva Mane on 01/28/20 5:01 pm * Is the patient Alert and Oriented? Yes * How many steps to enter\\exit or inside your home? * PCP None * Pharmacy [facility] * Preadmission Environment Homeless * ADLs Independent * Equipment None * Verbal permission to speak to the caregivers and representatives has been obtained from the patient. N/A * Community resources currently utilized None * Additional services required to return to the preadmission environment? No * Can the patient safely return to the preadmission environment? Yes * Has this patient been hospitalized within the prior 30 days at any hospital? No Last DP export: 01/29/20 11:39 a Patient Name: GIANNA CRUZ Page [phone] at 1323 All edits/amendments must be made on the electronic document DICTATION DATE: 01/29/20 1323 COMPUTATIONAL THEORY SCIENTIST: DOROTEO 01/29/20 1323 RPT#: [id number] DC DATE: STATUS: ADM IN [facility] [address] [place] [address] END OF REPORT
--- NOTE | 2020-01-29 14:29 | NUR ---
DC GIVEN PT
--- NOTE | 2020-01-29 14:38 | NUR ---
DC HOME PER PERSONAL CAR
--- NOTE | 2020-01-30 07:18 | MORECARE ---
CASE MANAGEMENT DISCHARGE SUMMARY PATIENT: GIANNA CRUZ UNIT: [id number] ADM DATE: 01/24/20 AGE: 24 : [birth year] SEX: M ROOM/BED: D.5945 AUTHOR: MADI,DOC PHYSICIAN: REFERRING PHYSICIAN: HALLE DIGGS MD DATE OF SERVICE: 01/30/20 Discharge Plan Patient Name: GIANNA CRUZ Facility: [facility]:[place] : 1995 Planned Disposition: Home Anticipated Discharge Date: Discharge Date: 01/29/2020 Expected LOS: 0 Initial Reviewer: [email or web address] Initial Review Date: 01/28/2020 Generated: 01/30/20 8:17 am Comments DCP- Discharge Planning Updated by [email or web address]: Odalys Eve on 01/29/20 12:[address] Glucometer, strips and lancets given to the patient for home use. He declines other needs. Home today, he again states he will purchase his own medication copays. DCP- Discharge Planning Updated by [email or web address]: Odalys Bryanrachel on 01/29/20 11:[address] Received discharge orders. I met with the patient and informed him that we would get his insulin for him at [facility] and pay for the copay. He refuses for me to get his insulin. He states he can get his own insulin and pay for the copay. I informed him that we could set up his dressing changes at the hospital in out patient's and he states he can do his own dressing change daily. He states "the only thing I asked for was a glucometer." I called and priced the glucometer with strips and lancets. Glucometer and strips are 32. 83 for an Easy Touch and the lancets are 9.99. I called Kayla and she will go to the pharmacy and pick it up and bring it to me. I called in RX to [facility] [address] per patient request. He states he would like a bus ticket to get to the pharmacy which I provided to him. Home today after he receives his glucometer. DCP- Discharge Planning Updated by [email or web address]: Eva Mane on 01/28/20 4:[address] Patient Name: GIANNA A KOLAS Admission Status: ER Accout number: [id number] Admission Date: 01-24-2020 : 1995 Admission Diagnosis:NAUSEA WITH VOMITING, UNSPECIFIED Attending: HALLE DIGGS Current LOS: 4 Anticipated DC Date: Planned Disposition: Home Primary Insurance: MEDICAID [place] Discharge Planning Comments: CM met with patient about discharge planning / needs. Patient states he is homeless. 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 and when he has some money he will stay in a hotel. When he doesn't have money he sleeps on the streets. States he had a glucometer, insulin and syringes but his stuff keeps getting stolen. States he will need a glucometer, strips, lancets and insulin upon hospital DC. States his Medicaid pays for most of the insulin but he can't afford the copay right now because he doesn't have any money. States he feels safe. When CM asked for an emergency contact patient states he doesn't have anyone. CM will continue to follow and assist as needed with discharge planning / needs. Injection Molding Machine Setter: Eva Mane DCPIA - Discharge Planning Initial Assessment Updated by [email or web address]: Eva Mane on 01/28/20 5:01 pm * Is the patient Alert and Oriented? Yes * How many steps to enter\\exit or inside your home? * PCP None * Pharmacy [facility] * Preadmission Environment Homeless * ADLs Independent * Equipment None * Verbal permission to speak to the caregivers and representatives has been obtained from the patient. N/A * Community resources currently utilized None * Additional services required to return to the preadmission environment? No * Can the patient safely return to the preadmission environment? Yes * Has this patient been hospitalized within the prior 30 days at any hospital? No Last DP export: 01/29/20 12:23 p Patient Name: GIANNA CRUZ Page [id number] at 0718 All edits/amendments must be made on the electronic document DICTATION DATE: 01/30/20716 NUCLEAR PHARMACIST: DOROTEO 01/30/20716 RPT#: [id number] DC DATE:01/29/20 STATUS: DIS IN [facility] [id number] [place] [address] END OF REPORT
== END 2020-01-29 14:39 | disposition home or self-care (01) | DRG 637 ==
LOC: D.ER 15:18 → D.M2 16:45 → D.ICU 16:45 → D.M2 01-26 15:02
PROVIDERS: Emergency Medicine; Family Medicine; Surgery; ADMIT Internal Medicine Nephrology; ATTEND Internal Medicine Nephrology
PROC: 0H9EXZZ Drainage of Left Lower Arm Skin, External Approach (ICD-10-PCS; principal; 2020-01-27 12:00)
DX: E10.10 Type 1 diabetes mellitus with ketoacidosis without coma (principal); G93.41 Metabolic encephalopathy; N17.9 Acute kidney failure, unspecified; E87.1 Hypo-osmolality and hyponatremia; L03.114 Cellulitis of left upper limb; E87.5 Hyperkalemia

== ENCOUNTER 2020-01-31 12:27 | Inpatient (IN) | payer OTHER ==
[~2020-01-31] VITALS: Ht 182.9 cm; Wt 60.3 kg
[2020-01-31] VITALS (15 sets, daily range): BP systolic 102–157; BP diastolic 53–82; BMI 16.1
[~2020-01-31 12:27] MED LIST: CLINDAMYCIN HC300 MG PO; FLORANEX / LACT1 TAB PO; HUMULIN R100 UNIT/1 SC; NOVOLOG MIX SC
--- NOTE | 2020-01-31 12:30 | NUR ---
FSBS - "HI", BLOOD DRAWN PER LAB.
[2020-01-31 13:36] LABS: UDS - AMPHET NEGATIVE QUAL (NEGATIVE); UDS - BARB NEGATIVE QUAL (NEGATIVE); UDS - BENZO NEGATIVE QUAL (NEGATIVE); UDS - COCAINE NEGATIVE QUAL (NEGATIVE); UDS - OPIATE NEGATIVE QUAL (NEGATIVE); UDS - PCP NEGATIVE QUAL (NEGATIVE); UDS - THC NEGATIVE QUAL (NEGATIVE)
[2020-01-31 13:41] LABS: ALBUMIN 4.8 g/dL (3.4-5.0); BILIRUBIN - TOTAL 0.43 mg/dL (0.2-1.3); CALCIUM 10.4 mg/dL (8.5-10.1); CREATININE - SERUM 2.2 mg/dL (0.6-1.3); MAGNESIUM - SERUM 3.1 mg/dL (1.8-2.4); PROTEIN - SERUM 9.4 g/dL (6.4-8.2); THYROID STIMULATING HORMONE 2.64 uIU/mL (0.36-3.74)
[2020-01-31 13:56] LABS: ANION GAP 41.8 mmol/L (8-16); CARBON DIOXIDE 6.3 mmol/L (21.0-32.0); PHOSPHOROUS 10.5 mg/dL (2.5-4.9); POTASSIUM - SERUM 7.1 mmol/L (3.5-5.1)
[2020-01-31 14:02] LABS: HEMATOCRIT 56.2 % (42.0-54.0); HEMOGLOBIN 17.2 g/dL (13.5-17.5); MCHC 30.6 g/dL (31.0-37.0); MCV 111.1 fL (80.0-100.0); MEAN PLATELET VOLUME 10.4 fL (7.4-10.4); PLATELET COUNT 607 10x3/uL (130-400); RBC 5.06 10x6/uL (4.20-6.10); RDW 13.4 % (11.5-14.5); WBC 39.6 10x3/uL (4.8-10.8)
--- NOTE | 2020-01-31 14:07 | NUR ---
FSBS - HI, ORDER FOR LAB DRAW.
[2020-01-31 14:15] LABS: BACTERIA FEW /hpf (NEGATIVE); BILIRUBIN NEGATIVE (NEGATIVE); EPITHELIAL CELLS 0-5 /hpf (0-5); GLUCOSE 1000 mg/dL (NEGATIVE); KETONE LARGE mg/dL (NEGATIVE); NITRITE NEGATIVE (NEGATIVE); RED CELLS - URINE OCC /hpf (0-5); SPECIFIC GRAVITY 1.025 (1.005-1.020); UROBILINOGEN NORMAL (NORMAL); WHITE CELLS - URINE RARE /hpf (NEGATIVE)
[2020-01-31 14:16] LABS: AMORPHOUS SEDIMENT <1+ /lpf (NONE SEEN); GRANULAR CAST OCC /lpf (NONE SEEN)
--- NOTE | 2020-01-31 15:50 | NUR ---
CALCIUM GLUC STOPPED AT 1550
[2020-01-31 16:27] LABS: CALCIUM 9.4 mg/dL (8.5-10.1); CREATININE - SERUM 1.7 mg/dL (0.6-1.3); MAGNESIUM - SERUM 2.8 mg/dL (1.8-2.4)
[2020-01-31 16:28] LABS: LYMPHOCYTES 18 % (15-50); NEUTROPHILS 81 % (40-80)
[2020-01-31 16:29] LABS: BASOPHILS 0 % (0-2); EOSINOPHILS 0 % (0-7); MONOCYTES 1 % (2-11); PLATELET ESTIMATE INCREASED
[2020-01-31 16:31] LABS: ANION GAP 31.1 mmol/L (8-16); CARBON DIOXIDE 11.9 mmol/L (21.0-32.0)
[2020-01-31 16:38] LABS: INR 1.05 (0.85-1.17); PROTIME 13.6 SECONDS (11.6-15.0)
[2020-01-31 16:39] LABS: APTT 26.7 SECONDS (22.8-39.4)
--- NOTE | 2020-01-31 19:20 | NUR ---
ADMISSIONS ASSESSMENT COMPLETED SEE FLOWSHEET. PT OPENS EYES SPONTANEOUSLY, SLURRED/STUTTERED SPEECH. PT EXPLAINS HE HAS PAIN ALL OVER AND IT IS A 10/10 AND IT "JUST HURTS" REQUESTING ICE CHIPS AT THIS TIME, CHART CHECK NPO ORDER. VSS CPOC
--- NOTE | 2020-01-31 20:35 | NUR ---
pt awake and oriented, requesting bedside commode, pt education completed regarding fall precautions. unsteady gait, x1 assist to bedside commode, instructed pt use call light when ready to get back in bed, vss cpoc
--- NOTE | 2020-01-31 21:45 | NUR ---
HS MEDICATIONS RECEIVED LAB AT BEDSIDE FOR Q4 BMP
[2020-01-31 23:05] LABS: ANION GAP 18.6 mmol/L (8-16); CALCIUM 9.4 mg/dL (8.5-10.1); CARBON DIOXIDE 24.8 mmol/L (21.0-32.0); CREATININE - SERUM 1.4 mg/dL (0.6-1.3); POTASSIUM - SERUM 4.4 mmol/L (3.5-5.1)
--- NOTE | 2020-01-31 23:10 | NUR ---
REASSESSMENT COMPLETED SEE FLOWSHEET
[2020-02-01] VITALS (24 sets, daily range): BP systolic 95–1214; BP diastolic 54–84
--- NOTE | 2020-02-01 01:10 | NUR ---
PT DENIES NEEDS, SLEEPING ROUSES TO SPEECH. VSS CPOC
--- NOTE | 2020-02-01 03:24 | NUR ---
REASSESSMENT COMPLETED SEE FLOWSHEET
[2020-02-01 03:57] LABS: BASOPHILS 0.2 % (0-2); EOSINOPHILS 0 % (0-7); HEMATOCRIT 41.9 % (42.0-54.0); HEMOGLOBIN 14.1 g/dL (13.5-17.5); IMMATURE GRANULOCYTES 1.6 % (0-5); LYMPHOCYTES 12.8 % (15-50); MCH 33.1 pg (26.0-34.0); MCHC 33.7 g/dL (31.0-37.0); MCV 98.4 fL (80.0-100.0); MEAN PLATELET VOLUME 9.6 fL (7.4-10.4); MONOCYTES 13.2 % (2-11); NEUTROPHILS 72.2 % (40-80); PLATELET COUNT 374 10x3/uL (130-400); RBC 4.26 10x6/uL (4.20-6.10); RDW 13.1 % (11.5-14.5); WBC 27.9 10x3/uL (4.8-10.8)
[2020-02-01 04:16] LABS: ALKALINE PHOSPHATASE 89 U/L (30-120); ALT (SGPT) 47 U/L (10-68); BILIRUBIN - TOTAL 0.27 mg/dL (0.2-1.3); CALC OSMOLALITY 296 mosm/kg (275-300); CALCIUM 8.2 mg/dL (8.5-10.1); CARBON DIOXIDE 24.1 mmol/L (21.0-32.0); CHLORIDE - SERUM 110 mmol/L (98-107); CREATININE - SERUM 1.2 mg/dL (0.6-1.3); GLUCOSE 160 mg/dL (74-106); POTASSIUM - SERUM 4.2 mmol/L (3.5-5.1); SODIUM 145 mmol/L (136-145); UREA NITROGEN 27 mg/dL (7-18); eGFR NON AFRICAN AMERICAN 80 mL/min (90-120)
[2020-02-01 04:21] LABS: ALBUMIN 3.3 g/dL (3.4-5.0)
--- NOTE | 2020-02-01 05:30 | NUR ---
PT RESTING COMFOTABLY EVEN RISE AND FALL OF CHEST VSS CPOC
--- NOTE | 2020-02-01 13:14 | NUR ---
0700 REPORT RECIEVED AND CARE ASSUMED OF PATIENT.. SEE SHIFT ASSESMENT FINDINGS .. 0730 FSBS DONE AND INSULIN ADJUSTMENT DONE.. 0900 DR LEWIS IN TO SEE PT.. 1030 DR ESPINOZA IN TO SEE PT.. UPDATE GIVEN AND ORDERS RECIEVED.. 1200 FULL LIQUID DIET SERVED TO PATIENT PER DR ESPINOZA ORDER FOR FULL LIQUIDS.. 1230 PT IS RAVENOUS.. CONTINUOUSLY ASKING FOR MORE TO DRINK .. DR ESPINOZA INFORMED AND VERBAL OK TO GIVEN HIM ALL HE WANTS LONG IT IS SUGAAR FREE.. 1300 DR ESPINOZA BEEPED FOR INSULIN VERIFICATION OF LANTUS INSULIN.. 1310 DR UP IN TO SEE PT
--- NOTE | 2020-02-01 17:09 | NUR ---
1400 CONTINUTE TO TITRATE INSULIN FOR BS.. 1500 WIHTOUT CHANGES PT IS SLEEPING.. 1700 TITRATING INSULIN SEE FLOW SHEET ... DINNER SERVED AND PT IS FEEDING SELF..
--- NOTE | 2020-02-01 19:15 | NUR ---
BEDSIDE SHIFT REPORT RECEIVED - SHIFT ASSESSMENT COMPLETED SEE FLOWSHEET VSS CPOC
--- NOTE | 2020-02-01 20:16 | NUR ---
PT RECEIVED NUTRITION PER ORDERS PER REQUEST AT THIS TIME
--- NOTE | 2020-02-01 21:30 | NUR ---
PT DENIES NEEDS AT THIS TIME VSS CPOC
--- NOTE | 2020-02-01 23:23 | NUR ---
DR REYEZ RETURNED PAGE NEW ORDERS RECEIVED
--- NOTE | 2020-02-01 23:30 | NUR ---
REASSESSMENT COMPLETED SEE FLOWSHEET
[2020-02-02] VITALS (23 sets, daily range): BP systolic 99–162; BP diastolic 56–113
--- NOTE | 2020-02-02 01:49 | NUR ---
PT RESTING COMFORTABLY, ROUSES TO VOICE. DENIES NEEDS VSS CPOC
--- NOTE | 2020-02-02 03:45 | NUR ---
REASSESSMENT COMPLETED SEE FLOWSHEET
--- NOTE | 2020-02-02 05:18 | NUR ---
CONTACTED LAB REGARDING MISSED BLOOD DRAWS. EXPLAINED PT HAS A Q4 BMP ORDER AND THOSE DRAWS CAN NOT BE SKIPPED. REQUESTED LAB TO DRAW BLOOD FOR AM LAB WORK
[2020-02-02 05:43] LABS: BASOPHILS 0.8 % (0-2); EOSINOPHILS 1.6 % (0-7); HEMATOCRIT 36.8 % (42.0-54.0); HEMOGLOBIN 12.1 g/dL (13.5-17.5); IMMATURE GRANULOCYTES 0.6 % (0-5); LYMPHOCYTES 31.5 % (15-50); MCH 32.4 pg (26.0-34.0); MCHC 32.9 g/dL (31.0-37.0); MCV 98.7 fL (80.0-100.0); MEAN PLATELET VOLUME 9.3 fL (7.4-10.4); MONOCYTES 7.4 % (2-11); NEUTROPHILS 58.1 % (40-80); RBC 3.73 10x6/uL (4.20-6.10); RDW 13.5 % (11.5-14.5)
[2020-02-02 05:45] LABS: PLATELET COUNT 236 10x3/uL (130-400); WBC 10.3 10x3/uL (4.8-10.8)
[2020-02-02 06:07] LABS: ALBUMIN 2.7 g/dL (3.4-5.0); ALKALINE PHOSPHATASE 75 U/L (30-120); BILIRUBIN - TOTAL 0.37 mg/dL (0.2-1.3); CALCIUM 7.7 mg/dL (8.5-10.1); CARBON DIOXIDE 25.1 mmol/L (21.0-32.0); CHLORIDE - SERUM 109 mmol/L (98-107); MAGNESIUM - SERUM 1.9 mg/dL (1.8-2.4); PHOSPHOROUS 2.9 mg/dL (2.5-4.9); PROTEIN - SERUM 5.8 g/dL (6.4-8.2); SODIUM 141 mmol/L (136-145)
[2020-02-02 06:08] LABS: ALT (SGPT) 65 U/L (10-68); CALC OSMOLALITY 281 mosm/kg (275-300); CREATININE - SERUM 0.8 mg/dL (0.6-1.3); GLUCOSE 95 mg/dL (74-106); POTASSIUM - SERUM 3.4 mmol/L (3.5-5.1); UREA NITROGEN 14 mg/dL (7-18); eGFR NON AFRICAN AMERICAN > 90 mL/min (90-120)
[2020-02-02 09:39] LABS: CARBON DIOXIDE 20.6 mmol/L (21.0-32.0); CHLORIDE - SERUM 98 mmol/L (98-107); POTASSIUM - SERUM 3.6 mmol/L (3.5-5.1); SODIUM 128 mmol/L (136-145); UREA NITROGEN 11 mg/dL (7-18); eGFR NON AFRICAN AMERICAN > 90 mL/min (90-120)
[2020-02-02 09:47] LABS: CALCIUM 6.2 mg/dL (8.5-10.1)
[2020-02-02 10:24] LABS: CALC OSMOLALITY 267 mosm/kg (275-300); GLUCOSE 312 mg/dL (74-106)
[2020-02-02 13:07] LABS: CARBON DIOXIDE 23.7 mmol/L (21.0-32.0); CHLORIDE - SERUM 106 mmol/L (98-107); POTASSIUM - SERUM 3.8 mmol/L (3.5-5.1); SODIUM 139 mmol/L (136-145); UREA NITROGEN 11 mg/dL (7-18); eGFR NON AFRICAN AMERICAN > 90 mL/min (90-120)
[2020-02-02 13:08] LABS: CALC OSMOLALITY 284 mosm/kg (275-300); GLUCOSE 236 mg/dL (74-106)
--- NOTE | 2020-02-02 14:51 | NUR ---
0700 REPORT RECIEVED AND CARE ASSUMED OF PATIENT.. INSULLIN DRIP INFUSING , 0800 INSULIN DRIP TURNED OFF... PER DKA PROTOCOL DR DIGGS CALLED AND INFORMED, INTERMEDIATE SS ORDERED.. 0900 FULL LIQUID DIET SERVED AND PT IS FEEDING SELF.. 0930 FSBS DONE 10 UNITS REGULAR INSULIN GIVEN.. [address] BAY IN TO SEE PT AND UPDATE IS GIVEN.. PT AWAKE AND ALERT 1100 ASSESMENT DONE .. CONTINUES OFF INSULIN DRIP 1200 BS DONE WITH INSULIN COVER PER SS..FULL LIQUID DIET SERVEED FOR LUNCH 1300 SLEEPING WIHTOUT C/O 1500 ASSESMENT DONE AFTERNOON PEANUT BUTTER SNACK GIVEN TO PT PER PATIENT REQUEST..
[2020-02-02 16:12] LABS: CALC OSMOLALITY 282 mosm/kg (275-300); CALCIUM 8.1 mg/dL (8.5-10.1); CARBON DIOXIDE 25.5 mmol/L (21.0-32.0); CHLORIDE - SERUM 108 mmol/L (98-107); CREATININE - SERUM 0.8 mg/dL (0.6-1.3); POTASSIUM - SERUM 3.8 mmol/L (3.5-5.1); SODIUM 141 mmol/L (136-145); UREA NITROGEN 9 mg/dL (7-18); eGFR NON AFRICAN AMERICAN > 90 mL/min (90-120)
[2020-02-02 16:17] LABS: GLUCOSE 154 mg/dL (74-106)
--- NOTE | 2020-02-02 16:49 | NUR ---
1630 FSBS DONE WITHOUT INSULIN COVER..DIET SERVED FEEDING SELF REGULAR ADA DIET
--- NOTE | 2020-02-02 18:05 | NUR ---
1800 ASSISITED OOB TO BSC..
--- NOTE | 2020-02-02 19:00 | NUR ---
BEDSIDE REPORT RECEIVED, PT CARE ASSUMED. INTRODUCED SELF AND WROTE NAME ON BOARD. VSS, PT SITTING UP IN BED, WATCHING TV, AAOX4. DENIES ANY NEEDS AT THIS TIME. BED IN LOWEST POSITION, SR X1, CALL LIGHT AND URINAL WITHIN REACH. WILL CTM.
[2020-02-02 20:30] LABS: CALCIUM 7.6 mg/dL (8.5-10.1); CARBON DIOXIDE 25.8 mmol/L (21.0-32.0); CHLORIDE - SERUM 103 mmol/L (98-107); CREATININE - SERUM 0.8 mg/dL (0.6-1.3); SODIUM 135 mmol/L (136-145); eGFR NON AFRICAN AMERICAN > 90 mL/min (90-120)
[2020-02-02 20:31] LABS: CALC OSMOLALITY 288 mosm/kg (275-300); POTASSIUM - SERUM 4.9 mmol/L (3.5-5.1); UREA NITROGEN 13 mg/dL (7-18)
[2020-02-02 20:32] LABS: GLUCOSE 432 mg/dL (74-106)
--- NOTE | 2020-02-02 21:00 | NUR ---
FSBS 399, 16 UNITS INSULIN AND NIGHT TIME MEDS ADMINISTERED, PER ORDER. REQUESTING COFFEE AND SNACK, PROVIDED. 500 ML CLEAR YELLOW URINE EMPTIED FROM URINAL. DENIES ANY OTHER NEEDS AT THIS TIME. BED IN LOWEST POSITION, SR X2, CALL LIGHT AND URINAL WITHIN REACH. WILL CTM.
--- NOTE | 2020-02-02 23:00 | NUR ---
REASSESSMENT COMPLETED. ASSISTED PT TO BEDSIDE COMMODE AND BACK TO BED. REQUESTING COFFEE AND SNACK, PROVIDED. DENIES ANY OTHER NEEDS, BED IN LOWEST, SR X1, CALL LIGHT AND URINAL WITHIN REACH. WILL CTM.
[2020-02-03] VITALS (14 sets, daily range): BP systolic 101–138; BP diastolic 73–101; Ht 182.9 cm; Wt 60.3 kg
--- NOTE | 2020-02-03 01:30 | NUR ---
975 ML CLEAR YELLOW URINE EMPTIED FROM URINAL. REQUESTING COFFEE AND SNACK, PROVIDED. DENIES ANY OTHER NEEDS AT THIS TIME. BED IN LOWEST, SRX2, CALL LIGHT AND URINAL WITHIN REACH. WILL CTM.
[2020-02-03 03:53] LABS: BASOPHILS 1.2 % (0-2); EOSINOPHILS 2.9 % (0-7); HEMATOCRIT 38.2 % (42.0-54.0); HEMOGLOBIN 12.6 g/dL (13.5-17.5); IMMATURE GRANULOCYTES 0.8 % (0-5); LYMPHOCYTES 42.9 % (15-50); MCH 32.9 pg (26.0-34.0); MCV 99.7 fL (80.0-100.0); MEAN PLATELET VOLUME 9.5 fL (7.4-10.4); NEUTROPHILS 43.2 % (40-80); PLATELET COUNT 239 10x3/uL (130-400); RBC 3.83 10x6/uL (4.20-6.10)
[2020-02-03 04:05] LABS: WBC 6.7 10x3/uL (4.8-10.8)
[2020-02-03 04:11] LABS: ALBUMIN 2.7 g/dL (3.4-5.0); ALKALINE PHOSPHATASE 102 U/L (30-120); BILIRUBIN - TOTAL 0.32 mg/dL (0.2-1.3); CALCIUM 7.7 mg/dL (8.5-10.1); CARBON DIOXIDE 26.1 mmol/L (21.0-32.0); CHLORIDE - SERUM 104 mmol/L (98-107); CREATININE - SERUM 0.9 mg/dL (0.6-1.3); MAGNESIUM - SERUM 1.7 mg/dL (1.8-2.4); PROTEIN - SERUM 5.8 g/dL (6.4-8.2); SODIUM 138 mmol/L (136-145); UREA NITROGEN 10 mg/dL (7-18); eGFR NON AFRICAN AMERICAN > 90 mL/min (90-120)
[2020-02-03 04:19] LABS: ALT (SGPT) 119 U/L (10-68); CALC OSMOLALITY 284 mosm/kg (275-300); GLUCOSE 279 mg/dL (74-106); POTASSIUM - SERUM 3.9 mmol/L (3.5-5.1)
--- NOTE | 2020-02-03 07:00 | NUR ---
REC'D REPORT AND RESUMED CARE, AAO, VSS, DENIES PAIN, ASSESSMENT COMPLETED PER FLOWSHEET, CALL LIGHT IN REACH, NO NEEDS AT THIS TIME
--- NOTE | 2020-02-03 07:30 | NUR ---
BREAKFAST TRAY TO BEDSIDE, INDEPENDENT WITH SET UP AND EATING
[2020-02-03 08:22] LABS: CALC OSMOLALITY 284 mosm/kg (275-300); CALCIUM 8.2 mg/dL (8.5-10.1); CARBON DIOXIDE 28.5 mmol/L (21.0-32.0); CHLORIDE - SERUM 106 mmol/L (98-107); CREATININE - SERUM 0.9 mg/dL (0.6-1.3); POTASSIUM - SERUM 3.9 mmol/L (3.5-5.1); SODIUM 141 mmol/L (136-145); UREA NITROGEN 11 mg/dL (7-18); eGFR NON AFRICAN AMERICAN > 90 mL/min (90-120)
[2020-02-03 08:23] LABS: GLUCOSE 193 mg/dL (74-106)
--- NOTE | 2020-02-03 09:00 | NUR ---
MORNING MEDS GIVEN WITHOUT DIFFICUTLY
--- NOTE | 2020-02-03 11:00 | NUR ---
RESTING WATCHING TV, VSS, DENIES PAIN, NO ACUTE CHANGE FROM PREVIOUS ASSESSMENT,
--- NOTE | 2020-02-03 11:45 | NUR ---
LUNCH TRAY TO BEDSIDE, INDEPENDENT WITH SET UP AND EATING
[2020-02-03 12:24] LABS: CALC OSMOLALITY 288 mosm/kg (275-300); CALCIUM 8.1 mg/dL (8.5-10.1); CARBON DIOXIDE 29.2 mmol/L (21.0-32.0); CHLORIDE - SERUM 105 mmol/L (98-107); CREATININE - SERUM 0.8 mg/dL (0.6-1.3); POTASSIUM - SERUM 4.1 mmol/L (3.5-5.1); SODIUM 140 mmol/L (136-145); UREA NITROGEN 10 mg/dL (7-18); eGFR NON AFRICAN AMERICAN > 90 mL/min (90-120)
[2020-02-03 12:29] LABS: GLUCOSE 302 mg/dL (74-106)
--- NOTE | 2020-02-03 16:00 | NUR ---
REPORT CALLED TO SHERRIE, PRIMARY RECEIVING NURSE ON MED SURG,
[2020-02-03 16:38] LABS: CALC OSMOLALITY 284 mosm/kg (275-300); CALCIUM 7.9 mg/dL (8.5-10.1); CARBON DIOXIDE 25.9 mmol/L (21.0-32.0); CHLORIDE - SERUM 104 mmol/L (98-107); CREATININE - SERUM 0.8 mg/dL (0.6-1.3); GLUCOSE 319 mg/dL (74-106); POTASSIUM - SERUM 4.5 mmol/L (3.5-5.1); SODIUM 137 mmol/L (136-145); UREA NITROGEN 10 mg/dL (7-18); eGFR NON AFRICAN AMERICAN > 90 mL/min (90-120)
[2020-02-03 20:59] LABS: CALC OSMOLALITY 287 mosm/kg (275-300); CALCIUM 8.7 mg/dL (8.5-10.1); CARBON DIOXIDE 28.2 mmol/L (21.0-32.0); CHLORIDE - SERUM 102 mmol/L (98-107); CREATININE - SERUM 1.1 mg/dL (0.6-1.3); GLUCOSE 274 mg/dL (74-106); POTASSIUM - SERUM 5.2 mmol/L (3.5-5.1); SODIUM 139 mmol/L (136-145); UREA NITROGEN 12 mg/dL (7-18); eGFR NON AFRICAN AMERICAN 88 mL/min (90-120)
--- NOTE | 2020-02-03 21:00 | NUR ---
A&O X 4. AMBULATING AD MICH. REPORTS HE ALWAYS IS IN PAIN, DENIES NEED FOR PRN TYLENOL. PT VERBALIZED UNDERSTANDING OF DIABETIC TEACHINGS FOR DIET AND INSULIN INJECTIONS/ROTATING SITES. REQUESTS DIET SODA AND SUGAR FREE JELLO. BANDAGE TO BACK OF LEFT UPPER ARM REMOVED. SKIN AROUND WOUND APPEARS CLEAN/NONREDDENED. NO DRAINAGED NOTED. OINTMENT AND CLEAN BANDAGE APPLIED. NO FURTHER NEEDS AT THIS TIME. CTM.
--- NOTE | 2020-02-03 22:04 | MORECARE ---
CASE MANAGEMENT DISCHARGE SUMMARY PATIENT: GIANNA CRUZ UNIT: [id number] ADM DATE: 01/31/20 AGE: 24 : [birth year] SEX: M ROOM/BED: D.2217 AUTHOR: EVELINA BARRAZA PHYSICIAN: REFERRING PHYSICIAN: PAN ESPINOZA MD DATE OF SERVICE: 02/03/20 Discharge Plan Patient Name: GIANNA CRUZ Facility: [facility]:[place] : 1995 Planned Disposition: Home or Self Care Anticipated Discharge Date: Discharge Date: Expected LOS: Initial Reviewer: [email or web address] Initial Review Date: 01/31/2020 Generated: 02/03/20 11:03 pm Comments DCP- Discharge Planning Updated by [email or web address]: Darline Ayala on 02/03/20 9:[address] Patient Name: GIANNA CRUZ Admission Status: ER Accout number: [id number] Admission Date: 01-31-2020 : 1995 Admission Diagnosis:ALTERED MENTAL STATUS, UNSPECIFIED Attending: PAN ESPINOZA Current LOS: 3 Anticipated DC Date: Planned Disposition: Primary Insurance: [employer] MA[employer]ED MEDICAID Discharge Planning Comments: CM met with patient about discharge planning / needs. Patient states he is homeless. 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 and when he has some money he will stay in a hotel. When he doesn't have money he sleeps on the streets. States he thinks he still has glucometer and lancets if it is still with his stuff. In most cases Medicaid doesn't have a copay for insulin but CM is uncertain about needles. CM asked if he ever picked up his insulin after last hospitalization and patient stated "no" because he couldn't get there. Patient was given a bus ticket upon last admission for transportation to get medications. When CM asked for an emergency contact patient states he doesn't have anyone. CM will continue to follow and assist as needed with discharge planning / needs. Vacuum Pan Operator: Darline Ayala Patient Name: GIANNA CRUZ Page 10287 at 2204 All edits/amendments must be made on the electronic document DICTATION DATE: 02/03/202202 EQUIPMENT OPERATOR WAGE HAND: DOROTEO 02/03/202202 RPT#: [id number] DC DATE: STATUS: ADM IN [facility] [address] [place] [address] END OF REPORT
--- NOTE | 2020-02-03 22:11 | MORECARE ---
CASE MANAGEMENT DISCHARGE SUMMARY PATIENT: GIANNA CRUZ UNIT: [id number] ADM DATE: 01/31/20 AGE: 24 : [birth year] SEX: M ROOM/BED: D.2217 AUTHOR: MADI,DOC PHYSICIAN: REFERRING PHYSICIAN: PAN ESPINOZA MD DATE OF SERVICE: 02/03/20 Discharge Plan Patient Name: GIANNA CRUZ Facility: [facility]:[place] : 1995 Planned Disposition: Home or Self Care Anticipated Discharge Date: Discharge Date: Expected LOS: Initial Reviewer: [email or web address] Initial Review Date: 01/31/2020 Generated: 02/03/20 11:10 pm Comments DCP- Discharge Planning Updated by [email or web address]: Darline Ayala on 02/03/20 9:[address] Patient Name: GIANNA CRUZ Admission Status: ER Accout number: [id number] Admission Date: 01-31-2020 : 1995 Admission Diagnosis:ALTERED MENTAL STATUS, UNSPECIFIED Attending: PAN ESPINOZA Current LOS: 3 Anticipated DC Date: Planned Disposition: Primary Insurance: [employer] MANAGED MEDICAID Discharge Planning Comments: CM met with patient about discharge planning / needs. Patient states he is homeless. 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 and when he has some money he will stay in a hotel. When he doesn't have money he sleeps on the streets. States he thinks he still has glucometer and lancets if it is still with his stuff. In most cases Medicaid doesn't have a copay for insulin but CM is uncertain about needles. CM asked if he ever picked up his insulin after last hospitalization and patient stated "no" because he couldn't get there. Patient was given a bus ticket upon last admission for transportation to get medications. When CM asked for an emergency contact patient states he doesn't have anyone. CM will continue to follow and assist as needed with discharge planning / needs. Still Cleaner Tube: Darline Ayala DCPIA - Discharge Planning Initial Assessment Updated by [email or web address]: Darline Ayala on 02/03/20 10:04 pm * Is the patient Alert and Oriented? Yes * How many steps to enter\\exit or inside your home? * PCP NO PCP * Pharmacy [facility] * Preadmission Environment Homeless * ADLs Independent * Equipment Glucometer * List name and contact numbers for known caregivers / representatives who currently or will assist patient after discharge: NONE * Verbal permission to speak to the caregivers and representatives has been obtained from the patient. No * Community resources currently utilized None * Additional services required to return to the preadmission environment? No * Can the patient safely return to the preadmission environment? Yes * Has this patient been hospitalized within the prior 30 days at any hospital? No Last DP export: 02/03/20 9:04 pm Patient Name: GIANNA CRUZ Page 44235 at 2211 All edits/amendments must be made on the electronic document DICTATION DATE: 02/03/202209 DRUM MAKER: DOROTEO 02/03/202209 RPT#: [id number] DC DATE: STATUS: ADM IN [facility] [address] [place] [address] END OF REPORT
--- NOTE | 2020-02-04 | NUR ---
CORPORATE PHYSICAL SECURITY SUPERVISOR TECH REPORTS DULL COAT MILL OPERATOR, GOLDIE, STATED TO PUT PT ON WAIT LIST FOR CORPORATE PHYSICAL SECURITY SUPERVISOR DUE TO LOW AMOUNT OF MONITORS AVAILABLE.
[2020-02-04 00:03] VITALS: BP 132/98
[2020-02-04 04:52] LABS: BASOPHILS 1.7 % (0-2); EOSINOPHILS 2.4 % (0-7); HEMATOCRIT 38.6 % (42.0-54.0); HEMOGLOBIN 12.8 g/dL (13.5-17.5); IMMATURE GRANULOCYTES 0.3 % (0-5); LYMPHOCYTES 45.1 % (15-50); MCH 32.9 pg (26.0-34.0); MCHC 33.2 g/dL (31.0-37.0); MCV 99.2 fL (80.0-100.0); MEAN PLATELET VOLUME 9.4 fL (7.4-10.4); MONOCYTES 11.2 % (2-11); NEUTROPHILS 39.3 % (40-80); PLATELET COUNT 230 10x3/uL (130-400); RBC 3.89 10x6/uL (4.20-6.10); RDW 12.6 % (11.5-14.5); WBC 5.8 10x3/uL (4.8-10.8)
[2020-02-04 05:23] LABS: ALBUMIN 2.7 g/dL (3.4-5.0); ALKALINE PHOSPHATASE 123 U/L (30-120); ALT (SGPT) 141 U/L (10-68); BILIRUBIN - TOTAL 0.29 mg/dL (0.2-1.3); CALCIUM 8.5 mg/dL (8.5-10.1); CARBON DIOXIDE 30.4 mmol/L (21.0-32.0); CHLORIDE - SERUM 105 mmol/L (98-107); CREATININE - SERUM 0.9 mg/dL (0.6-1.3); MAGNESIUM - SERUM 1.7 mg/dL (1.8-2.4); SODIUM 140 mmol/L (136-145); UREA NITROGEN 13 mg/dL (7-18); eGFR NON AFRICAN AMERICAN > 90 mL/min (90-120)
[2020-02-04 05:34] VITALS: BP 122/83
[2020-02-04 05:47] LABS: CALC OSMOLALITY 284 mosm/kg (275-300); GLUCOSE 199 mg/dL (74-106); POTASSIUM - SERUM 3.8 mmol/L (3.5-5.1)
--- NOTE | 2020-02-04 08:15 | NUR ---
PATIENT IN BED WITH IV INTACT. NO COMPLAINTS OR SIGNS OF DISTRESS. CALL LIGHT WITHIN REACH.
[2020-02-04 09:07] VITALS: BP 131/95
--- NOTE | 2020-02-04 10:30 | NUR ---
PATIENT UP AMBULATING IN HALLWAYS WITH NO PROBLEMS A TTHIS TIME.
[2020-02-04] MEDS ORDERED: VIBRAMYCIN 100100 MG PO (10:53)
[2020-02-04] MEDS ORDERED: LEVAQUIN750 MG PO (11:14)
[2020-02-04 12:45] VITALS: BP 134/81
--- NOTE | 2020-02-04 14:40 | NUR ---
CHANGED DRESSING OVER WOUND AT THIS TIME. CLEANED WITH NS, PATTED DRY. APPLIED BACTROBAN AND BANDAID. PATIENT TOLERATED WITH SMALL AMOUNT OF PAIN, INSULIN GIVEN. CALL LIGHT WITHIN REACH.
--- NOTE | 2020-02-04 16:26 | MORECARE ---
CASE MANAGEMENT DISCHARGE SUMMARY PATIENT: GIANNA CRUZ UNIT: [id number] ADM DATE: 01/31/20 AGE: 24 : [birth year] SEX: M ROOM/BED: D.2217 AUTHOR: EVELINA BARRAZA PHYSICIAN: REFERRING PHYSICIAN: PAN ESPINOZA MD DATE OF SERVICE: 02/04/20 Discharge Plan Patient Name: GIANNA CRUZ Facility: [facility]:[place] : 1995 Planned Disposition: Home or Self Care Anticipated Discharge Date: Discharge Date: Expected LOS: Initial Reviewer: [email or web address] Initial Review Date: 01/31/2020 Generated: 02/04/20 5:26 pm Comments DCP- Discharge Planning Updated by [email or web address]: Jamee Martinez on 02/04/20 3:[address] SPOKE WITH PATIENT ABOUT WHAT DISCHARGE SUPPLIES HE HAS. HE DID STATE THAT HE DOES HAVE THE GLUCOMETER ALONG WITH ALL OF HIS SUPPLIES. HE DOES NOT HAVE SYRINGES (NOR THE MONEY TO SPEAK TO PAY FOR THEM) HE SAID THAT HE CAN FIND WORK AND WILL BE ABLE TO GET IN A DAY OR SO. I HAVE CALLED IN HIS VIBRAMYCIN 100MG PO BID & LEVAQUIN 750MG PO & SYRINGES. THE HOSPITAL WILL PAY FOR THE ABX AND SYRINGES AND WILL ALSO PAY FOR HIM TO GET A TAXI TO COVER MAKING MACHINE OPERATOR HIS MEDICATIONS AND GET TO HIS DISCHARGED PLACE ([facility]) DCP- Discharge Planning Updated by [email or web address]: Darline Ayala on 02/03/20 9:[address] Patient Name: GIANNA CRUZ Admission Status: ER Accout number: [id number] Admission Date: 01-31-2020 : 1995 Admission Diagnosis:ALTERED MENTAL STATUS, UNSPECIFIED Attending: PAN ESPINOZA Current LOS: 3 Anticipated DC Date: Planned Disposition: Primary Insurance: [facility] Discharge Planning Comments: CM met with patient about discharge planning / needs. Patient states he is homeless. 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 and when he has some money he will stay in a hotel. When he doesn't have money he sleeps on the streets. States he thinks he still has glucometer and lancets if it is still with his stuff. In most cases Medicaid doesn't have a copay for insulin but CM is uncertain about needles. CM asked if he ever picked up his insulin after last hospitalization and patient stated "no" because he couldn't get there. Patient was given a bus ticket upon last admission for transportation to get medications. When CM asked for an emergency contact patient states he doesn't have anyone. CM will continue to follow and assist as needed with discharge planning / needs. Custom Tailor Apprentice: Darline Ayala DCPIA - Discharge Planning Initial Assessment Updated by [email or web address]: Darline Ayala on 02/03/20 10:04 pm * Is the patient Alert and Oriented? Yes * How many steps to enter\\exit or inside your home? * PCP NO PCP * Pharmacy [facility] * Preadmission Environment Homeless * ADLs Independent * Equipment Glucometer * List name and contact numbers for known caregivers / representatives who currently or will assist patient after discharge: NONE * Verbal permission to speak to the caregivers and representatives has been obtained from the patient. No * Community resources currently utilized None * Additional services required to return to the preadmission environment? No * Can the patient safely return to the preadmission environment? Yes * Has this patient been hospitalized within the prior 30 days at any hospital? No Last DP export: 02/03/20 9:11 pm Patient Name: GIANNA CRUZ Page 80175 at 1626 All edits/amendments must be made on the electronic document DICTATION DATE: 02/04/201625 HEAT CURER: DOROTEO 02/04/201625 RPT#: [id number] DC DATE: STATUS: ADM IN [facility] [address] [place] [address] END OF REPORT
--- NOTE | 2020-02-04 16:30 | NUR ---
PATIENT RECIEVED DC INSTRUCTIONS. VEBALIZED UNDERSTANDING. NO QUESTIONS AT THIS TIME. IV X 2 REMOVED WITH CATH TIP INTACT. EXPLAINED TO JEWELRY SALES COORDINATOR MEDS AT PHARMACY. VERBALIZED UNDERSTANDING. CALLED [facility] AND AMBULATED WITH PATIENT TO ER WITH PERSONAL BELONGINGS.
--- NOTE | 2020-02-04 16:36 | MORECARE ---
CASE MANAGEMENT DISCHARGE SUMMARY PATIENT: GIANNA CRUZ UNIT: [id number] ADM DATE: 01/31/20 AGE: 24 : [birth year] SEX: M ROOM/BED: D.2217 AUTHOR: EVELINA BARRAZA PHYSICIAN: REFERRING PHYSICIAN: PAN ESPINOZA MD DATE OF SERVICE: 02/04/20 Discharge Plan Patient Name: GIANNA CRUZ Facility: [facility]:[place] : 1995 Planned Disposition: Home or Self Care Anticipated Discharge Date: Discharge Date: Expected LOS: Initial Reviewer: [email or web address] Initial Review Date: 01/31/2020 Generated: 02/04/20 5:35 pm Comments DCP- Discharge Planning Updated by [email or web address]: Jamee Martinez on 02/04/20 3:[address] DOXY & LEVAQUIN 10.99 10.43 SYRINGES 16.30 TAXI 12.00 ALL OF THIS WILL BE COVERED AND PAID BY CASE MANAGEMENT DCP- Discharge Planning Updated by [email or web address]: Jamee Martinez on 02/04/20 3:[address] SPOKE WITH PATIENT ABOUT WHAT DISCHARGE SUPPLIES HE HAS. HE DID STATE THAT HE DOES HAVE THE GLUCOMETER ALONG WITH ALL OF HIS SUPPLIES. HE DOES NOT HAVE SYRINGES (NOR THE MONEY TO SPEAK TO PAY FOR THEM) HE SAID THAT HE CAN FIND WORK AND WILL BE ABLE TO GET IN A DAY OR SO. I HAVE CALLED IN HIS VIBRAMYCIN 100MG PO BID & LEVAQUIN 750MG PO & SYRINGES. 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 Patient states he is homeless. 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 and when he has some money he will stay in a hotel. When he doesn't have money he sleeps on the streets. States he thinks he still has glucometer and lancets if it is still with his stuff. In most cases Medicaid doesn't have a copay for insulin but CM is uncertain about needles. CM asked if he ever picked up his insulin after last hospitalization and patient stated "no" because he couldn't get there. Patient was given a bus ticket upon last admission for transportation to get medications. When CM asked for an emergency contact patient states he doesn't have anyone. CM will continue to follow and assist as needed with discharge planning / needs. Transit Police Officer: Darline [place] - Discharge Planning Initial Assessment Updated by [email or web address]: Darline Ayala on 02/03/20 10:04 pm * Is the patient Alert and Oriented? Yes * How many steps to enter\\exit or inside your home? * PCP NO PCP * Pharmacy [facility] * Preadmission Environment Homeless * ADLs Independent * Equipment Glucometer * List name and contact numbers for known caregivers / representatives who currently or will assist patient after discharge: NONE * Verbal permission to speak to the caregivers and representatives has been obtained from the patient. No * Community resources currently utilized None * Additional services required to return to the preadmission environment? No * Can the patient safely return to the preadmission environment? Yes * Has this patient been hospitalized within the prior 30 days at any hospital? No Last DP export: 02/04/20 3:26 pm Patient Name: GIANNA CRUZ Page [id number] at 1636 All edits/amendments must be made on the electronic document DICTATION DATE: 02/04/20 1635 STEAMER OPERATOR: DOROTEO 02/04/20 1635 RPT#: [id number] [place] DATE: STATUS: ADM IN [facility] [address] [place] [address] END OF REPORT
--- NOTE | 2020-02-04 16:43 | MORECARE ---
CASE MANAGEMENT DISCHARGE SUMMARY PATIENT: GIANNA CRUZ UNIT: [id number] ADM DATE: 01/31/20 AGE: 24 : [birth year] SEX: M ROOM/BED: D.2217 AUTHOR: MADI,DOC PHYSICIAN: REFERRING PHYSICIAN: PAN ESPINOZA MD DATE OF SERVICE: 02/04/20 Discharge Plan Patient Name: GIANNA CRUZ Facility: [facility]:[place] : 1995 Planned Disposition: Home or Self Care Anticipated Discharge Date: Discharge Date: Expected LOS: Initial Reviewer: [email or web address] Initial Review Date: 01/31/2020 Generated: 02/04/20 5:42 pm Comments DCP- Discharge Planning Updated by [email or web address]: Jamee Martinez on 02/04/20 3:[address] SPOKE WITH PATIENT ABOUT HIS MEDICATIONS 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 I GAVE HIM A SANDWICH TRAY AND A PAIR OF TENNIS SHOES HE WAS VERY THANKFUL FOR THE HELP. I GAVE HIM 2 BUS TICKETS TO GET TO AND FROM THE DOCTOR. CM TO FOLLOW AND ASSIST NEEDED DCP- Discharge Planning Updated by [email or web address]: Jamee Martinez on 02/04/20 3:[address] DOXY & LEVAQUIN 10.99 10.43 SYRINGES 16.30 TAXI 12.00 ALL OF THIS WILL BE COVERED AND PAID BY CASE MANAGEMENT DCP- Discharge Planning Updated by [email or web address]: Jamee Martinez on 02/04/20 3:[address] SPOKE WITH PATIENT ABOUT WHAT DISCHARGE SUPPLIES HE HAS. HE DID STATE THAT HE DOES HAVE THE GLUCOMETER ALONG WITH ALL OF HIS SUPPLIES. HE DOES NOT HAVE SYRINGES (NOR THE MONEY TO SPEAK TO PAY FOR THEM) HE SAID THAT HE CAN FIND WORK AND WILL BE ABLE TO GET IN A DAY OR SO. I HAVE CALLED IN HIS VIBRAMYCIN 100MG PO BID & LEVAQUIN 750MG PO & SYRINGES. THE HOSPITAL WILL PAY FOR THE ABX AND SYRINGES AND WILL ALSO PAY FOR HIM TO GET A TAXI TO PANAMA HAT SMEARER HIS MEDICATIONS AND GET TO HIS DISCHARGED PLACE ([facility]) DCP- Discharge Planning Updated by [email or web address]: Darline Ayala on 02/03/20 9:[address] Patient Name: GIANNA CRUZ Admission Status: ER Accout number: [id number] Admission Date: 01-31-2020 : 1995 Admission Diagnosis:ALTERED MENTAL STATUS, UNSPECIFIED Attending: PAN ESPINOZA Current LOS: 3 Anticipated DC Date: Planned Disposition: Primary Insurance: [employer]ED MEDICAID Discharge Planning Comments: CM met with patient about discharge planning / needs. Patient states he is homeless. 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 and when he has some money he will stay in a hotel. When he doesn't have money he sleeps on the streets. States he thinks he still has glucometer and lancets if it is still with his stuff. In most cases Medicaid doesn't have a copay for insulin but CM is uncertain about needles. CM asked if he ever picked up his insulin after last hospitalization and patient stated "no" because he couldn't get there. Patient was given a bus ticket upon last admission for transportation to get medications. When CM asked for an emergency contact patient states he doesn't have anyone. CM will continue to follow and assist as needed with discharge planning / needs. Curb Setter Helper: Darline AUSTIN - Discharge Planning Initial Assessment Updated by [email or web address]: Darline Ayala on 02/03/20 10:04 pm * Is the patient Alert and Oriented? Yes * How many steps to enter\\exit or inside your home? * PCP NO PCP * Pharmacy [facility] * Preadmission Environment Homeless * ADLs Independent * Equipment Glucometer * List name and contact numbers for known caregivers / representatives who currently or will assist patient after discharge: NONE * Verbal permission to speak to the caregivers and representatives has been obtained from the patient. No * Community resources currently utilized None * Additional services required to return to the preadmission environment? No * Can the patient safely return to the preadmission environment? Yes * Has this patient been hospitalized within the prior 30 days at any hospital? No Last DP export: 02/04/20 3:36 pm Patient Name: GIANNA CRUZ Page [id number] at 1643 All edits/amendments must be made on the electronic document DICTATION DATE: 05/05/20 1642 TENSILE TESTER: DOROTEO 02/04/201641 RPT#: [id number] DC DATE: STATUS: ADM IN [facility] [address] [place] [address] END OF REPORT
--- NOTE | 2020-02-05 09:25 | MORECARE ---
CASE MANAGEMENT DISCHARGE SUMMARY PATIENT: GIANNA CRUZ UNIT: [id number] ADM DATE: 01/31/20 AGE: 24 : [birth year] SEX: M ROOM/BED: D.2217 AUTHOR: MADI,DOC PHYSICIAN: REFERRING PHYSICIAN: PAN ESPINOZA MD DATE OF SERVICE: 02/05/20 Discharge Plan Patient Name: GIANNA CRUZ Facility: [facility]:[place] : 1995 Planned Disposition: Home or Self Care Anticipated Discharge Date: Discharge Date: 02/04/2020 Expected LOS: Initial Reviewer: [email or web address] Initial Review Date: 01/31/2020 Generated: 02/05/20 10:24 am Comments DCP- Discharge Planning Updated by [email or web address]: Jamee Martinez on 02/04/20 3:[address] SPOKE WITH PATIENT ABOUT HIS MEDICATIONS 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 I GAVE HIM A SANDWICH TRAY AND A PAIR OF TENNIS SHOES HE WAS VERY THANKFUL FOR THE HELP. I GAVE HIM 2 BUS TICKETS TO GET TO AND FROM THE DOCTOR. CM TO FOLLOW AND ASSIST NEEDED DCP- Discharge Planning Updated by [email or web address]: Jamee Martinez on 02/04/20 3:[address] DOXY & LEVAQUIN 10.99 10.43 SYRINGES 16.30 TAXI 12.00 ALL OF THIS WILL BE COVERED AND PAID BY CASE MANAGEMENT DCP- Discharge Planning Updated by [id number]: Jamee Martinez on 02/04/20 3:[address] SPOKE WITH PATIENT ABOUT WHAT DISCHARGE SUPPLIES HE HAS. HE DID STATE THAT HE DOES HAVE THE GLUCOMETER ALONG WITH ALL OF HIS SUPPLIES. HE DOES NOT HAVE SYRINGES (NOR THE MONEY TO SPEAK TO PAY FOR THEM) HE SAID THAT HE CAN FIND WORK AND WILL BE ABLE TO GET IN A DAY OR SO. I HAVE CALLED IN HIS VIBRAMYCIN 100MG PO BID & LEVAQUIN 750MG PO & SYRINGES. 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 Patient states he is homeless. 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 and when he has some money he will stay in a hotel. When he doesn't have money he sleeps on the streets. States he thinks he still has glucometer and lancets if it is still with his stuff. In most cases Medicaid doesn't have a copay for insulin but CM is uncertain about needles. CM asked if he ever picked up his insulin after last hospitalization and patient stated "no" because he couldn't get there. Patient was given a bus ticket upon last admission for transportation to get medications. When CM asked for an emergency contact patient states he doesn't have anyone. CM will continue to follow and assist as needed with discharge planning / needs. Supervisor Smoke Control: [facility] - Discharge Planning Initial Assessment Updated by [email or web address]: Darline Ayala on 02/03/20 10:04 pm * Is the patient Alert and Oriented? Yes * How many steps to enter\\exit or inside your home? * PCP NO PCP * Pharmacy [facility] * Preadmission Environment Homeless * ADLs Independent * Equipment Glucometer * List name and contact numbers for known caregivers / representatives who currently or will assist patient after discharge: NONE * Verbal permission to speak to the caregivers and representatives has been obtained from the patient. No * Community resources currently utilized None * Additional services required to return to the preadmission environment? No * Can the patient safely return to the preadmission environment? Yes * Has this patient been hospitalized within the prior 30 days at any hospital? No Last DP export: 02/04/20 3:43 pm Patient Name: GIANNA CRUZ Page 48629 at 0984 All edits/amendments must be made on the electronic document DICTATION DATE: 02/05/20923 MARKETING OPERATIONS MANAGER: DM 02/05/20923 RPT#: [id number] DC DATE:02/04/20 STATUS: DIS IN [facility] [address] [place] [address] END OF REPORT
== END 2020-02-04 18:11 | disposition home or self-care (01) | DRG 871 ==
LOC: D.ER 12:27 → D.ICU 15:36 → D.MS 15:36
PROVIDERS: Emergency Medicine; Internal Medicine Nephrology; ADMIT Family Medicine; ATTEND Family Medicine
DX: A41.9 Sepsis, unspecified organism (principal); E10.10 Type 1 diabetes mellitus with ketoacidosis without coma; G93.41 Metabolic encephalopathy; L03.114 Cellulitis of left upper limb; N17.9 Acute kidney failure, unspecified; E87.1 Hypo-osmolality and hyponatremia; E46 Unspecified protein-calorie malnutrition; Z68.1 Body mass index [BMI] 19.9 or less, adult; E87.5 Hyperkalemia

== ENCOUNTER 2020-02-10 07:01 | Inpatient (IN) | payer OTHER ==
[~2020-02-10] VITALS: Ht 182.9 cm; Wt 61.5 kg
[2020-02-10] VITALS (15 sets, daily range): BP systolic 93–136; BP diastolic 50–81; BMI 16.4
[~2020-02-10 07:01] MED LIST changes: +LEVAQUIN750 MG PO; +VIBRAMYCIN 100100 MG PO
[2020-02-10 07:29] LABS: HEMATOCRIT 48.5 % (42.0-54.0); LYMPHOCYTES 11.6 % (15-50); MCH 33.1 pg (26.0-34.0); MCV 100.4 fL (80.0-100.0); MEAN PLATELET VOLUME 10.3 fL (7.4-10.4); RBC 4.83 10x6/uL (4.20-6.10); WBC 19.2 10x3/uL (4.8-10.8)
[2020-02-10 07:30] LABS: PLATELET COUNT 432 10x3/uL (130-400)
[2020-02-10 07:47] LABS: ALBUMIN 4.4 g/dL (3.4-5.0); BILIRUBIN - TOTAL 0.6 mg/dL (0.2-1.3); CALCIUM 10.2 mg/dL (8.5-10.1); CREATININE - SERUM 1.9 mg/dL (0.6-1.3); MAGNESIUM - SERUM 2.9 mg/dL (1.8-2.4); PROTEIN - SERUM 8.7 g/dL (6.4-8.2)
[2020-02-10 07:53] LABS: BILIRUBIN NEGATIVE (NEGATIVE); GLUCOSE 1000 mg/dL (NEGATIVE); KETONE LARGE mg/dL (NEGATIVE); NITRITE NEGATIVE (NEGATIVE); SPECIFIC GRAVITY 1.015 (1.005-1.020); UROBILINOGEN NORMAL (NORMAL)
[2020-02-10 08:03] LABS: ANION GAP 40.2 mmol/L (8-16)
[2020-02-10 08:07] LABS: CARBON DIOXIDE 7.1 mmol/L (21.0-32.0); POTASSIUM - SERUM 6.3 mmol/L (3.5-5.1)
--- NOTE | 2020-02-10 08:07 | NUR ---
ERP INFORMED OF CRITICAL LABS: GLU OF 816, POTASSIUM OF 6.3, AND CO2 OF 7.1
--- NOTE | 2020-02-10 10:10 | NUR ---
PT ADMITED. ASSESSMENT COMPLETE PER FLOW SHEET. VSS. DR DELANEY AT BEDSIDE GIVEN UDPATE. NEW ORDERS RECEIVED. WILL CONTINUE TO MONITOR
--- NOTE | 2020-02-10 11:40 | NUR ---
DR DELANEY AT BEDSIDE NEW ORDERS RECEIVED
[2020-02-10 11:55] LABS: UDS - AMPHET NEGATIVE QUAL (NEGATIVE); UDS - BARB NEGATIVE QUAL (NEGATIVE); UDS - BENZO NEGATIVE QUAL (NEGATIVE); UDS - COCAINE NEGATIVE QUAL (NEGATIVE); UDS - OPIATE NEGATIVE QUAL (NEGATIVE); UDS - PCP NEGATIVE QUAL (NEGATIVE); UDS - THC NEGATIVE QUAL (NEGATIVE)
[2020-02-10 12:55] LABS: CALCIUM 9.1 mg/dL (8.5-10.1); CREATININE - SERUM 1.6 mg/dL (0.6-1.3); MAGNESIUM - SERUM 2.5 mg/dL (1.8-2.4)
[2020-02-10 12:58] LABS: ANION GAP 23.2 mmol/L (8-16); CARBON DIOXIDE 17.1 mmol/L (21.0-32.0); POTASSIUM - SERUM 4.3 mmol/L (3.5-5.1)
--- NOTE | 2020-02-10 13:15 | NUR ---
PT RESTING COMFORTABLY DENIES NEEDS WILL CONTINUE TO MONITOR
--- NOTE | 2020-02-10 15:20 | NUR ---
REASSESSMENT COMPLETE PER FLOW SHEET. VSS. PT RESTING COMFOTABLY WILL CONTINUE TO MONITO R
[2020-02-10 16:38] LABS: CALCIUM 8.6 mg/dL (8.5-10.1); CREATININE - SERUM 1.4 mg/dL (0.6-1.3); MAGNESIUM - SERUM 2.4 mg/dL (1.8-2.4); POTASSIUM - SERUM 4.3 mmol/L (3.5-5.1)
[2020-02-10 16:43] LABS: CARBON DIOXIDE 23.3 mmol/L (21.0-32.0)
--- NOTE | 2020-02-10 17:14 | MORECARE ---
CASE MANAGEMENT DISCHARGE SUMMARY PATIENT: GIANNA CRUZ UNIT: [id number] ADM DATE: 02/10/20 AGE: 24 : [birth year] SEX: M ROOM/BED: D.2304 AUTHOR: EVELINA BARRAZA PHYSICIAN: REFERRING PHYSICIAN: ART DELANEY DO DATE OF SERVICE: 02/10/20 Discharge Plan Patient Name: GIANNA CRUZ [facility] : 1995 Planned Disposition: Home or Self Care Anticipated Discharge Date: Discharge Date: Expected LOS: Initial Reviewer: [id number] Initial Review Date: 02/10/2020 Generated: 02/10/20 6:13 pm DCPIA - Discharge Planning Initial Assessment Updated by [email or web address]: Darline Ayala on 02/10/20 5:05 pm * Is the patient Alert and Oriented? Yes * PCP NO PCP * Pharmacy [facility] * Preadmission Environment Homeless * Facility Name [facility] * ADLs Independent * Other Equipment GLUCOMETER, LANCETS, NEEDLES * List name and contact numbers for known caregivers / representatives who currently or will assist patient after discharge: NO ONE * Verbal permission to speak to the caregivers and representatives has been obtained from the patient. N/A * Additional services required to return to the preadmission environment? No * Can the patient safely return to the preadmission environment? Yes * Has this patient been hospitalized within the prior 30 days at any hospital? Yes Patient Name: GIANNA CRUZ Page 77554 at 1714 All edits/amendments must be made on the electronic document DICTATION DATE: 02/10/201712 GENERAL FREIGHT AGENT: DOROTEO 02/10/201712 RPT#: [id number] DC DATE: STATUS: ADM IN [facility] [address] [place] [address] END OF REPORT
--- NOTE | 2020-02-10 17:20 | NUR ---
PT ADMISSIONS RN LIGHT. GIVEN ICE CHIPS PER REQUEST.
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
--- NOTE | 2020-02-10 19:15 | NUR ---
PT A/OX4, VOICES NEEDS, LUNGS CLEAR, LEFT AC PIV INTACT AND SL, RIGHT HAND PIV INTACT WITH INSULIN GTT INFUSING, URINAL IN REACH @ BEDSIDE, NO DISTRESS NOTED, VITALS STABLE
[2020-02-10 21:11] LABS: CALC OSMOLALITY 294 mosm/kg (275-300); CARBON DIOXIDE 24.7 mmol/L (21.0-32.0); CHLORIDE - SERUM 112 mmol/L (98-107); CREATININE - SERUM 1.2 mg/dL (0.6-1.3); GLUCOSE 108 mg/dL (74-106); MAGNESIUM - SERUM 2.2 mg/dL (1.8-2.4); POTASSIUM - SERUM 3.9 mmol/L (3.5-5.1); SODIUM 146 mmol/L (136-145); UREA NITROGEN 20 mg/dL (7-18); eGFR NON AFRICAN AMERICAN 80 mL/min (90-120)
--- NOTE | 2020-02-10 21:15 | NUR ---
PT WATCHING TV WITH NO C/O, WILL CONT TO MONITOR
--- NOTE | 2020-02-10 23:00 | NUR ---
RESTING QUIETLY, NO C/O NAUSEA, GIVEN DIET SODA, VITALS STABLE
[2020-02-11] VITALS (12 sets, daily range): BP systolic 98–127; BP diastolic 49–82
--- NOTE | 2020-02-11 | NUR ---
PT GIVEN PO WATER PER REQUEST. CALL LIGHT IN REACH. WILL CONT POC.
--- NOTE | 2020-02-11 01:00 | NUR ---
PT AROUSES EASILY, FSBS Q1HR, VITALS STABLE, NO C/O @ THIS TIME
[2020-02-11 03:09] LABS: ANION GAP 11.9 mmol/L (8-16); CALCIUM 7.8 mg/dL (8.5-10.1); CARBON DIOXIDE 24.6 mmol/L (21.0-32.0); CREATININE - SERUM 1.3 mg/dL (0.6-1.3); MAGNESIUM - SERUM 2.1 mg/dL (1.8-2.4); POTASSIUM - SERUM 3.5 mmol/L (3.5-5.1)
[2020-02-11 03:10] LABS: PHOSPHOROUS 1.5 mg/dL (2.5-4.9)
[2020-02-11 03:12] LABS: LYMPHOCYTES 26.8 % (15-50); MCHC 33.4 g/dL (31.0-37.0); MCV 98.6 fL (80.0-100.0); MEAN PLATELET VOLUME 9.4 fL (7.4-10.4); NEUTROPHILS 66.7 % (40-80); RDW 13.1 % (11.5-14.5)
[2020-02-11 03:14] LABS: HEMATOCRIT 35.6 % (42.0-54.0); HEMOGLOBIN 11.9 g/dL (13.5-17.5); PLATELET COUNT 268 10x3/uL (130-400); RBC 3.61 10x6/uL (4.20-6.10); WBC 12.4 10x3/uL (4.8-10.8)
--- NOTE | 2020-02-11 03:15 | NUR ---
PT REMAINS AWAKE WITH NO C/O, WILL CONT TO MONITOR
--- NOTE | 2020-02-11 19:00 | NUR ---
REPORT RECEVEID FROM THE OFF GOING RN. SEE ASSESSMENT IN THE PTS FLOW SHEET. VSS. WILL CONT POC.
--- NOTE | 2020-02-11 21:00 | NUR ---
VSS. PT DENIES NEEDS AT THIS TIME. WILL CONT POC.
[2020-02-12] VITALS (8 sets, daily range): BP systolic 111–214; BP diastolic 51–91; Ht 182.9 cm; Wt 61.5 kg
--- NOTE | 2020-02-12 02:00 | NUR ---
PT DENIES NEEDS AT THIS TIME. VSS. CALL LIGHT IN REACH. WILL CONT POC.
[2020-02-12 03:43] LABS: HEMATOCRIT 35.3 % (42.0-54.0); HEMOGLOBIN 11.2 g/dL (13.5-17.5); MCH 32.2 pg (26.0-34.0); MCHC 31.7 g/dL (31.0-37.0); MCV 101.4 fL (80.0-100.0); MEAN PLATELET VOLUME 9.6 fL (7.4-10.4); PLATELET COUNT 207 10x3/uL (130-400); RBC 3.48 10x6/uL (4.20-6.10); RDW 13.5 % (11.5-14.5); WBC 5.6 10x3/uL (4.8-10.8)
[2020-02-12 03:54] LABS: CALC OSMOLALITY 277 mosm/kg (275-300); CALCIUM 7.7 mg/dL (8.5-10.1); CARBON DIOXIDE 26.1 mmol/L (21.0-32.0); CHLORIDE - SERUM 107 mmol/L (98-107); CREATININE - SERUM 0.8 mg/dL (0.6-1.3); GLUCOSE 51 mg/dL (74-106); MAGNESIUM - SERUM 1.7 mg/dL (1.8-2.4); PHOSPHOROUS 2.7 mg/dL (2.5-4.9); POTASSIUM - SERUM 3.5 mmol/L (3.5-5.1); SODIUM 141 mmol/L (136-145); UREA NITROGEN 12 mg/dL (7-18)
[2020-02-12 03:56] LABS: eGFR NON AFRICAN AMERICAN > 90 mL/min (90-120)
[2020-02-12 04:16] LABS: BASOPHILS 1 % (0-2); EOSINOPHILS 2 % (0-7); LYMPHOCYTES 56 % (15-50); MONOCYTES 3 % (2-11); NEUTROPHILS 35 % (40-80)
[2020-02-12 04:19] LABS: PLATELET ESTIMATE DECREASED
--- NOTE | 2020-02-12 04:35 | NUR ---
PT STATES THAT HE FEELS THAT HIS BLOOD SUGAR IS LOW. FSBS TAKEN. SEE RESULTS IN LAB FLOW SHEET. MILK CRACKERS AND PEANUT BUTTER PROVIDED. WILL CONT POC.
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
== END 2020-02-12 14:12 | disposition home or self-care (01) | DRG 638 ==
LOC: D.ER 07:01 → D.ICU 09:05
PROVIDERS: Family Medicine; ADMIT Family Medicine; ATTEND Family Medicine
DX: E10.10 Type 1 diabetes mellitus with ketoacidosis without coma (principal); E46 Unspecified protein-calorie malnutrition; Z68.1 Body mass index [BMI] 19.9 or less, adult; Z79.4 Long term (current) use of insulin; E87.5 Hyperkalemia; Z59.0 Homelessness